=== PATIENT | female | born 1950 | race Caucasian/White ===

== ENCOUNTER → 2017-12-24 | Outpatient (CLI) | payer BC ==
[~2017-12-24] MED LIST: ACET-1138 PO; ASCO1CAP3 PO; ASPEC81 PO; ATEN50TA8 PO; CALC600T9 PO; CHOL4POW6 PO; CINNAMON PO; CLB200 PO; HONEY PO; LSX20 PO; NTRGSL/4 UT; OMEP40CA PO; OXYSR10 PO; PREMARIN CREAM TOP; RXC5 PO
--- NOTE | 2017-12-24 10:37 | Discharge Instructions ---
Discharge Instructions Procedure Procedure Date: Dec 24, 2017. Reason for visit: Right Breast Mass. Discharge Discharge Date: Dec 24, 2017. Discharge Diagnosis: post right breast ultrasound guided core biopsy Medications Restart Stopped Medication(s): May restart Aspirin today Instructions Activity Recommendations: Additional Limitations (see below) Return to School/Work: no limitations Recommended Home Diet: No Limitations Provider Instructions: ACTIVITY RECOMMENDATIONS: * No lifting, pushing, pulling or exercising the affected side for three days. RETURN TO SCHOOL/WORK: * You may return to work/school after the procedure, but do not perform any strenuous activities for 24 to 48 hours. MEDICATIONS: * Tylenol (two 325 mg) every four to six hours if needed for mild pain (if not allergic to Tylenol). DIET: * Resume previous diet. SPECIAL CARE INSTRUCTIONS: * Keep biopsy site dry for 24 hours. May shower after 24 hours, but do not soak (bathe) incision. * May remove Tegaderm (plastic patch) tomorrow AFTER showering. * Leave the steri-strips on for one week. Allow the steri-strips to fall off by themselves. If not off after one week, you may remove them. You may place a Bandaid crosswise over the strips, if desired. * Apply ice 10 minutes on and 10 minutes off as needed. * Wear a bra at bedtime to sleep more comfortably for 2-3 days. * Your referring physician should have the results after approximately 5 to 7 business days. * Call for unusual bleeding, fever, drainage, etc or if you have any questions call [phone] during normal business hours or after hours call Dr Michael, . FOLLOW UP VISIT: Follow-up with Referring Physician as scheduled. Allergies Coded Allergies: Adhesives (Verified Allergy, Intermediate, TEARS SKIN, 02/19/16) Statins (Verified Adverse Reaction, Intermediate, muscle pain, 02/19/16) Vineet Wolfe Recommendations: Call your doctor if: * Temperature above 101 degrees * Pain not relieved by pain medicine ordered * There is increased drainage or redness from any incision * You have any unanswered questions or concerns. Your Doctors Instructions noted above were prepared by provider Maylin Michael. Patient Signature Section: Patient Instructions Signature Page Starr Bowman Patient (or Guardian) Signature/Date: I have read and understand the instructions given to me by my caregivers. Caregiver/RN/Doctor Signature/Date: The above-named patient and/or guardian has received patient instructions on this date. + Original Patient Signature Page (only) stays with chart. Please make copy for patient.
--- NOTE | 2017-12-24 15:12 | MAMMOGRAPHY REPORT ---
UNILATERAL RIGHT DIGITAL DIAGNOSTIC MAMMOGRAM TOMOSYNTHESIS: 12/24/2017 CLINICAL HISTORY: 67-year-old woman presents for biopsy of an increasing mixed cystic and solid mass in the 6:00 right breast, thought to correlate with a mammographic focal asymmetry. Please refer to the report from right breast ultrasound-guided core biopsy performed at the same time for full detail. IMPRESSION: POST PROCEDURE IMAGING FOR MARKER PLACEMENT Please refer to the report from right breast ultrasound-guided core biopsy performed at the same time for full detail. Approximately 10% of breast cancers are not detected with mammography. A negative mammographic report should not delay biopsy if a clinically suggestive mass is present. Maylin Michael M.D. ay/:12/24/2017 10:36:37 Cloud Operations Engineer: Jovi ROBBINS)(Jose), [facility] BI-RADS Code: Post Procedure Imaging For Marker Placement
--- NOTE | 2017-12-24 15:12 | MAMMOGRAPHY REPORT ---
ULTRASOUND GUIDED BIOPSY RIGHT BREAST: 12/24/2017 CLINICAL HISTORY: 67-year-old woman initially called back from screening mammography performed at an outside institution on 05/08/2017. She was found to have a focal asymmetry in the 6:00 axis, with pos sible sonographic correlate seen on ultrasound that appeared predominantly cystic. A six-month follo w-up was recommended but at time of follow-up, the sonographic mass had increased and was deemed inde terminate and tissue sampling was recommended. The patient presents for biopsy of the mixed solid an d cystic mass in the 6:00 right breast. COMPARISON: Comparison is made to exams dated: 12/02/2017 mammogram, 12/02/2017 ultrasound, 05/30/2017 mammogram, 05/30/2017 ultrasound, 05/08/2017 mammogram, and 04/23/2016 mammogram. Right PATIENT CONSENT: The procedure, risks and benefits were discussed with the patient and informed consent was obtained both verbally and in writing. Specific risks to this procedure include: bleedi ng, infection, puncture of adjacent structure, nontarget biopsy, sampling error, pain, metal allergy and medication reaction. PROCEDURE DESCRIPTION: A time out was performed and the right breast was agreed as the site of biopsy . First repeat targeted ultrasound was performed in the 6:00 right breast, 5 cm from the nipple, to evaluate the mass identified at an outside institution. In the right 6:00 axis, 5 cm from the nipple , a mixed isoechoic and anechoic predominantly cystic mass is identified, measuring 6.2 x 3.9 mm. Thi s corresponds with the mass seen on the outside ultrasounds and is indeterminate. This is the target for ultrasound-guided core biopsy. The skin of the right breast was prepped and draped in the usual sterile fashion. The 6.2 mm mixed so lid and cystic mass in the 6:00 right breast was chosen as the target for biopsy. Subcutaneous and in traparenchymal 1% buffered lidocaine, with and without epinephrine, was administered as local anesthe harjinder. A skin incision was made. Through the incision, 4 samples were taken with a 14 gauge Achieve bi opsy device. The mass decreased in size after each core biopsy sample. A ribbon shaped metallic mar ker was placed at the biopsy site. Hemostasis was achieved after manual compression. The patient tole rated the procedure well and there was no immediate complication. The samples were sent to the patho logy department in an appropriately labeled container. Postprocedure right CC and ML tomosynthesis images were obtained. The mammographic mass is no longer identified, and there is a new ribbon-shaped biopsy marker clip in the 6:00 right breast in the are a of previously observed mass. This confirms mammographic or sonographic correlation. No significan t post biopsy hematoma identified. IMPRESSION: ULTRASOUND GUIDED BIOPSY Status post ultrasound-guided core biopsy of an indeterminate mixed solid and cystic mass in the 6:00 right breast, with biopsy marker placed at the site. The biopsy marker clip aligns with the initial mammographic focal asymmetry in question, confirming mammographicsonographic correlation. The patient will receive notification of the pathology results from her referring physician. Maylin Michael M.D. ay/:12/24/2017 11:06:00 Television Equipment Operator: Jovi ROBBINS)(Jose), [facility]
== END | disposition home or self-care (01) ==
LOC: C.MAMM 09:17
PROVIDERS: ATTEND Surgery
DX: R92.8 Other abnormal and inconclusive findings on diagnostic imaging of breast (principal); N63.10 Unspecified lump in the right breast, unspecified quadrant; N60.41 Mammary duct ectasia of right breast

== ENCOUNTER → 2017-12-31 | Day surgery (SDC) | payer BC ==
[~2017-12-31] VITALS: Ht 175.3 cm; Wt 95.0 kg
[~2017-12-31] MED LIST changes: +LACTATED RINGER'S 1000ML IV SCH; +LIDOCAINE HCL 1% 20 ML VIAL ONE
[2017-12-31 11:20] VITALS: BP 122/62; PULSE 69; TEMP 36.8; O2SAT 95; Ht 175.3 cm; Wt 95.0 kg
--- NOTE | 2017-12-31 12:46 | [facility] Operative Report ---
Operative Report Date of Service Dec 31, 2017. Operative Report Procedure: Removal of loop recorder Staff Steel Finisher: Jacob Mckeon MD Indication: Patient previously undergone implantation of patient activated loop recorder. Is reached the end of life. She therefore request removal. Procedure in detail: The patient was informed of the risks benefits alternatives to the intended procedure. She understood such and wished to proceed. She was taken to the EP lab where the upper chest area was prepped and draped in usual sterile fashion. An area over the previously implanted loop recorder was anesthetized using subcutaneous administration of lidocaine solution. A small incision was made at this site and the loop recorder removed. A single 4 0 Vicryl suture was placed at the small incision covered by Steri-Strips and a sterile dressing. The patient tolerated the procedure well. There were no immediate complications. Explanted loop recorder: Commercial Front Load Operator [employer]. Model number LN Q 1 1. Serial number [id number] Impression: ILR removed. No sedation. No complications I attest to the content of the Intraoperative Record and any orders documented therein. Any exceptions are noted below.
--- NOTE | 2017-12-31 12:49 | Discharge Instructions ---
Discharge Instructions Procedure Procedure Date: Dec 31, 2017. Reason for Visit: *Removal* Eos *Mike To Do*. Discharge Discharge Date: Dec 31, 2017. Discharge Diagnosis: Removal of loop recorder Last Recorded Wt (Kilograms): 95 Anesthesia Post Anesthesia Instructions: If you have had General Anesthesia or IV Sedation: * Do not drive today. * Resume driving when surgeon permits. * Do not make important decisions or sign legal documents today. * Call surgeon for: 1. Temperature elevations greater than 101 degrees F. 2. Uncontrollable pain. 3. Excessive bleeding. 4. Persistent nausea and vomiting. 5. Medication intolerance (nausea, vomiting or rash). * For nausea and vomiting use only clear liquids such as: tea, soda, bouillon until nausea subsides, then gradually increase diet as tolerated. * If you have any concerns or questions, call your surgeon's office. If physician is unavailable and it is an emergency, call 911 or go to the nearest emergency room. Instructions Activity Recommendations: shower/bathe limit Recommended Home Diet: resume previous diet Allergies: Coded Allergies: Adhesives (Verified Allergy, Intermediate, TEARS SKIN, 02/19/16) Statins (Verified Adverse Reaction, Intermediate, muscle pain, 02/19/16) Provider Instructions Keep wound dry and steri-strip intact until f/u in 1 week. May remove outer bulky dressing in am Follow Up Vineet Wolfe Recommendations: Call your doctor if: * Temperature above 101 degrees * Pain not relieved by pain medicine ordered * There is increased drainage or redness from any incision * You have any unanswered questions or concerns. Your Doctors Instructions noted above were prepared by provider Sanchez Mckeon. Patient Signature Section: Patient Instructions Signature Page Starr Bowman Patient (or Guardian) Signature/Date: I have read and understand the instructions given to me by my caregivers. Caregiver/RN/Doctor Signature/Date: The above-named patient and/or guardian has received patient instructions on this date. + Original Patient Signature Page (only) stays with chart. Please make copy for patient.
[2017-12-31 12:50] VITALS: BP 141/70; PULSE 65; TEMP 36.6; O2SAT 96
[2017-12-31 13:20] VITALS: BP 139/64; PULSE 71; TEMP 36.4; O2SAT 98
== END | disposition home or self-care (01) ==
LOC: C.ACU 10:53
PROVIDERS: ATTEND Internal Medicine Clinical Cardiac Electrophysiology
DX: Z45.09 Encounter for adjustment and management of other cardiac device (principal); R00.2 Palpitations; I11.0 Hypertensive heart disease with heart failure; I50.9 Heart failure, unspecified; I25.10 Atherosclerotic heart disease of native coronary artery without angina pectoris; K21.9 Gastro-esophageal reflux disease without esophagitis; E78.5 Hyperlipidemia, unspecified; R91.8 Other nonspecific abnormal finding of lung field; I25.2 Old myocardial infarction; Z87.440 Personal history of urinary (tract) infections; Z90.49 Acquired absence of other specified parts of digestive tract; Z90.710 Acquired absence of both cervix and uterus; Z96.659 Presence of unspecified artificial knee joint; Z82.49 Family history of ischemic heart disease and other diseases of the circulatory system; Z83.3 Family history of diabetes mellitus; Z80.7 Family history of other malignant neoplasms of lymphoid, hematopoietic and related tissues; Z79.82 Long term (current) use of aspirin; Z79.899 Other long term (current) drug therapy; Z88.8 Allergy status to other drugs, medicaments and biological substances

== ENCOUNTER 2023-06-10 09:45 | Inpatient (IN) ==
--- NOTE | 2023-05-23 11:33 | PAT Medication Instructions ---
Medication Instructions Date of Service May 23, 2023 Home Medications Medication Instructions Recorded pantoprazole 40 mg tablet,delayed See Rx Instructions .Route 04/17/22 release .COMPLEX #60 tabs aspirin 81 mg tablet,delayed release 81 mg PO QAM atenolol 50 mg tablet 50 mg PO QAM celecoxib 200 mg capsule 200 mg PO DAILY PRN pain conjugated estrogens 0.625 mg/gram vaginal cream (Premarin) 0.625 mg vaginal 2XW K cyanocobalamin (vitamin B-12) 2,500 mcg sublingual tablet (Vitamin B-12) 2,500 mcg sublingual QAM furosemide 20 mg tablet 20 mg PO QAM garlic 1 cap PO HS nitroglycerin 0.4 mg sublingual tablet (Nitrostat) 0.4 mg sublingual Q5M PRN chest pain ascorbic acid (vitamin C) 500 mg capsule 500 mg PO HS calcium carbonate 600 mg calcium (1,500 mg) tablet 600 mg PO HS cholestyramine (with sugar) 4 gram powder for susp in a packet (Questran) 1 ea PO QPM pantoprazole 40 mg tablet,delayed release See Rx Instructions omega-3 fatty acids [Fish Oil] 1 cap PO QAM Continue as directed nitroglycerin 0.4 mg sublingual tablet (Nitrostat) 0.4 mg sublingual Q5M PRN chest pain (if needed) ASK your surgeon for instructions celecoxib 200 mg capsule 200 mg PO DAILY PRN pain ASK your prescriber and surgeon conjugated estrogens 0.625 mg/gram vaginal cream (Premarin) 0.625 mg vaginal 2XWK STOP taking 2 weeks before surgery garlic 1 cap PO HS omega-3 fatty acids [Fish Oil] 1 cap PO QAM STOP taking 48 hours before surgery cholestyramine (with sugar) 4 gram powder for susp in a packet (Questran) 1 ea PO QPM DO NOT take the morning of surgery cyanocobalamin (vitamin B-12) 2,500 mcg sublingual tablet (Vitamin B-12) 2,500 mcg sublingual QAM furosemide 20 mg tablet 20 mg PO QAM Take morning of surgery With a small sip of water, OTHERWISE NOTHING TO EAT OR DRINK AFTER MIDNIGHT: aspirin 81 mg tablet,delayed release 81 mg PO QAM (unless surgeon directed otherwise) atenolol 50 mg tablet 50 mg PO QAM pantoprazole 40 mg tablet,delayed release See Rx Instructions Take evening before surgery ascorbic acid (vitamin C) 500 mg capsule 500 mg PO HS calcium carbonate 600 mg calcium (1,500 mg) tablet 600 mg PO HS pantoprazole 40 mg tablet,delayed release See Rx Instructions Other Notes If you have any questions please call us at [phone] or [phone] or [phone] or [phone]
--- NOTE | 2023-05-27 13:40 | Anesthesiology Consultation ---
Date of Service May 27, 2023 Assessment & Plan (1) Encounter for pre-operative examination: - COVID screening: Per assessment on 05/27: No known COVID-19 positive contacts or current COVID-19 related symptoms. No recent Covid positive test result. - Patient acceptable risk for surgery pending surgeon-ordered cardiology preop evaluation ([facility] cardiology, appt 06/05). Chart Review Chart Review: Patient seen in Pre Admission Testing Teaching & Discussion Pre-Anesthesia Teaching/Discussion Notes: Instructed NPO after midnight before surgery,except medications with 15 cc of water. Medication instructions provided according to the PAT guidelines. History Surgery Operation Date: 06/10/23 10:35 Proposed Procedures p L3-L5 Decompression and Fusion, L3 Screw Removal Spinal Cord Monitoring - Henrik Madison DO Height/Weight Height: 5 ft 10 in Weight: 101.2 kg Allergies Allergy/AdvReac Type Severity Reaction Status Date / Time adhesive Allergy Intermediate Skin Verified 05/27/23 13:44 tearing alirocumab Allergy Intermediate Chest Pain Verified 05/22/23 13:48 [From Praluent Pen] [id number]-[id number] Reductase AdvReac Intermediate muscle pain Verified 05/22/23 13:48 Inhibitor [Tvuetyx-Kcu-Pjg Reductase Inhibitor] Medications Home Medications Medication Instructions Recorded Confirmed Last Taken aspirin 81 mg tablet,delayed 81 mg PO QAM 02/21/21 05/22/23 02/07/22 release atenolol 50 mg tablet 50 mg PO QAM 02/21/21 05/22/23 02/08/22 05:30 celecoxib 200 mg capsule 200 mg PO DAILY PRN pain 02/21/21 05/22/23 01/25/22 conjugated estrogens 0.625 mg/gram 0.625 mg vaginal 2XWK 02/21/21 05/22/23 02/05/22 vaginal cream (Premarin) cyanocobalamin (vitamin B-12) 2,500 mcg sublingual QAM 02/21/21 05/22/23 02/07/22 2,500 mcg sublingual tablet (Vitamin B-12) furosemide 20 mg tablet 20 mg PO QAM 02/21/21 05/22/23 02/07/22 garlic 1 cap PO HS 02/21/21 05/22/23 02/07/22 nitroglycerin 0.4 mg sublingual 0.4 mg sublingual Q5M PRN chest 02/21/21 05/22/23 Unknown tablet (Nitrostat) pain ascorbic acid (vitamin C) 500 mg 500 mg PO HS 02/27/21 05/22/23 02/07/22 capsule calcium carbonate 600 mg calcium 600 mg PO HS 03/17/21 05/22/23 02/07/22 (1,500 mg) tablet cholestyramine (with sugar) 4 gram 1 ea PO QPM 03/17/21 05/22/23 02/07/22 powder for susp in a packet (Questran) pantoprazole 40 mg tablet,delayed See Rx Instructions .Route 04/17/22 05/22/23 Unknown release .COMPLEX #60 tabs omega-3 fatty acids [Fish Oil] 1 cap PO QAM 04/20/22 05/22/23 Unknown Past Medical History Medical History Chronic back pain 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 cardiology visit 12/2022 (f/u based on holter monitor findings per note) Hyperlipidemia Hypertension Left knee DJD Perforated bowel Hx r/t colonoscopy complication > bowel resection Vaginal pessary present Exercise / Class Metabolic Activity II 4-5 Yardwork/Stairs/Walk up hill (one FS (no CP, no SOB)) Past Family History Family History Mother Heart disease Myocardial infarction Father Cancer lymphoma Grandmother (Paternal) Heart disease Sister Diabetes Brother Diabetes Daughter Diabetes Other No family history of adverse response to anesthesia Past Surgical History Surgical History H/O cardiac catheterization Age 40s- no stents History of arthroplasty of knee left knee History of arthroscopy of right knee History of benign breast biopsy History of bilateral cataract extraction History of bilateral tubal ligation History of bowel resection After perforation after colonoscopy History of section x3 History of colonoscopy History of cystoscopy History of dilatation and curettage History of esophagogastroduodenoscopy (EGD) History of loop recorder subsequently removed History of lumbar spinal fusion History of partial hysterectomy History of wisdom tooth extraction Hx of decompressive lumbar laminectomy S/P appendectomy S/P cholecystectomy Past Anesthesia History No Hx of Anesthesia Complications and No Family Hx of Anesthesia Complications History of PONV History of PONV (Post-op nausea (no issue subsequently when pretreatment given)) and Hx of Motion Sickness Social History Smoking Status: Never smoker Do You Dip or Chew Tobacco: No Hx Alcohol Use: Yes Alcohol type: wine alcohol intake frequency: holidays/special occasions only Hx Substance Use: No substance use type: does not use Review of Systems Patient denies chest pain, shortness of breath, dyspnea on exertion, fever, chills, cough, wheezing, palpitations. Physical Exam Vital Signs VITALS BP 147/80 P 64 TEMP 98.2 SP02 96%RA RESP 18 PHYSICAL Full cervical extension range of motion. Full TMJ range of motion. TMD 3 finger breaths Mallampati Score 1 Dentition: upper full denture Lungs: clear throughout to auscultation Cardiac: regular rate and rhythm, no murmurs noted Spine: normal Carotid arteries: negative bruit Extremities: no LE edema Lab Results Anesthesia Preop Results Results Anesthesia Widget: WBC 5.19 K/ul (4.8-10.8) 05/27/23 Hgb 12.6 g/dl (12.0-16.0) 05/27/23 Hct 38.1 % (37.0-47.0) 05/27/23 Plt 269 K/uL (130-400) 05/27/23 Na 140 mmol/L (136-145) 05/27/23 K 4.2 mmol/L (3.5-5.1) 05/27/23 Cl 104 mmol/L (98-107) 05/27/23 CO2 29 mmol/L (21-32) 05/27/23 BUN 10 mg/dl (6-23) 05/27/23 Creat 0.68 mg/dl (0.6-1.2) 05/27/23 Glucose Level 92 mg/dl (70-99(Fasting)) 05/27/23 PT 12.1 Seconds (9.0-12.0) H 05/27/23 PTT 27.6 Seconds (21.0-31.0) 05/27/23 INR 1.1 (0.9-1.1) 05/27/23 Urine Color Yellow 05/27/23 Urine Appearance Clear (Clear) 05/27/23 Urine pH 5.0 (4.5-7.5) 05/27/23 Urine Specific Telephone 1.017 (1.000-1.030) 05/27/23 Urine Protein Negative (Negative) 05/27/23 Urine Glucose (UA) Negative (Negative) 05/27/23 Urine Ketones Negative (Negative) 05/27/23 Urine Blood 3+ (Negative) H 05/27/23 Urine Nitrite Negative (Negative) 05/27/23 Urine Bilirubin Negative (Negative) 05/27/23 Urine Urobilinogen Negative (Negative) 05/27/23 Urine Leukocyte Esterase Negative (Negative) 05/27/23 Urine WBC (Auto) 0 /hpf (0-5) 05/27/23 Urine RBC (Auto) 5-10 /hpf (0-4) H 05/27/23 Urine Hyaline Casts (Auto) 1-5 /lpf (0-5) 05/27/23 Urine Epithelial Cells (Auto) >30 /lpf (0-5) H 05/27/23 Urine Bacteria (Auto) 1+ (Negative) H 05/27/23 Blood Type O Positive 05/27/23 Antibody Screen NEGATIVE 05/27/23 Testing Laboratory Results *Surgeon's office made aware of abnormal UA* Electrocardiogram Date: 12/21/22 Sinus rhythm at 72 bpm. RBBB. Chest X-Ray Date: 05/27/23 FINDINGS: No lines and tubes are seen. The cardiomediastinal silhouette is n ormal. The lungs are clear. No evidence of pleural effusion or pneumothorax. IMPRESSION: No acute chest disease. Echocardiogram Date: 12/25/22 LVEF 65%. LV wall motion is normal.Grade 1 diastolic dysfunction. Nondilated cardiac chambers. Mild AV sclerosis. Mild [place]. No significant change compared to 01/2021 per report. Stress Test Date: 01/16/21 Type: DSE Stress echo negative for inducible ischemia. 96% MPHR. No EKG evidence of dobutamine induced myocardial ischemia. Stress EKG shows occasional PVCs with runs of atrial tachycardia. No significant ST changes are noted. Rest echo: LVEF 66%. No LV segmental wall motion abnormalities. Nondilated cardiac chambers. Other Testing banking center manager Date: 01/22/23 (25 days monitored) Average heart rate 69 bpm. Minimum 50 bpm. Maximum 120 bpm. No significant atrial or ventricular ectopy. No sustained atrial ventricular arrhythmias. No significant bradycardia, heart block or pauses. No atrial fibrillation. Impression: Normal event monitor without symptoms or arrhythmia.
[~2023-06-10 09:45] MED LIST changes: -ACET-1138 PO; +ACETAMINOPHEN 500 MG TAB PO SCH; -ASCO1CAP3 PO; -ASPEC81 PO; -ATEN50TA8 PO; -CALC600T9 PO; -CHOL4POW6 PO; -CINNAMON PO; -CLB200 PO; +CeleBREX 200 MG CAP PO SCH; +GABAPENTIN 300 MG CAP PO SCH; -HONEY PO; -LACTATED RINGER'S 1000ML IV SCH; -LIDOCAINE HCL 1% 20 ML VIAL ONE; +LR 15ML/HR IV SCH; +LR 60ML/HR IV SCH; -LSX20 PO; -NTRGSL/4 UT; -OMEP40CA PO; -OXYSR10 PO; -PREMARIN CREAM TOP; -RXC5 PO; +ceFAZolin 2000MG 2,000 MG/15 ML SYR IV SCH
[2023-06-10] MEDS ORDERED: ONDANSETRON INJ 2 MG/ML 2 ML VIAL ONE (10:57)
[2023-06-10] MEDS ORDERED: PROPOFOL IV EMULSION 10 MG/ML 20 ML VIAL IV ONE (10:57)
[2023-06-10] MEDS ORDERED: DEXAMETHASONE SOD INJ 4 MG/ML VIAL ONE (10:57)
[2023-06-10] MEDS ORDERED: MIDAZOLAM HCL 1 MG/ML 2ML VIAL ONE (10:57)
[2023-06-10] MEDS ORDERED: fentaNYL citrate PF 100 MCG/2 ML VIAL ONE (10:57)
[2023-06-10] MEDS ORDERED: LIDOCAINE 2% 2 ML VIAL/AMP(20MG/ML) INFIL ONE (10:57)
[2023-06-10] MEDS ORDERED: ROCURONIUM BROMIDE 10 MG/ML 5 ML VIAL IV ONE (10:57)
--- NOTE | 2023-06-10 12:00 | History & Physical Bridge Note ---
Date of Service June 10, 2023 History & Physical Bridge Note I have examined the patient, reviewed the History & Physical and in the interval since the performance of the History & Physical I have noted the following changes of clinical significance: no changes noted
--- NOTE | 2023-06-10 12:01 | History & Physical Report ---
Date of Service June 10, 2023 Assessment & Plan (1) Neurogenic claudication due to lumbar spinal stenosis: Plan: L3-L5 decompression and fusion, L3 screw removal History of Present Illness Chief Complaint: Back and bilateral leg pain Primary Care Provider: Rigo Chavez This is a 72-year-old female who presents with chronic persistent back and bilateral leg pain after failing course of nonoperative care she is here for surgical invention. Allergies Allergy/AdvReac Type Severity Reaction Status Date / Time adhesive Allergy Intermediate Skin Verified 06/10/23 10:13 tearing alirocumab Allergy Intermediate Chest Pain Verified 06/10/23 10:13 [From Praluent Pen] Zhnimkg-XEV-VxM Reductase AdvReac Intermediate muscle pain Verified 06/10/23 10:13 Inhibitor [Hehhczi-Ihl-Akp Reductase Inhibitor] Home Medications Medication Instructions Recorded Confirmed Type aspirin 81 mg tablet,delayed 81 mg PO QAM 02/21/21 06/10/23 History release atenolol 50 mg tablet 50 mg PO QAM 02/21/21 06/10/23 History celecoxib 200 mg capsule 200 mg PO DAILY PRN pain 02/21/21 06/10/23 History conjugated estrogens 0.625 mg/gram 0.625 mg vaginal 2XWK 02/21/21 06/10/23 History vaginal cream (Premarin) cyanocobalamin (vitamin B-12) 2,500 mcg sublingual QAM 02/21/21 06/10/23 History 2,500 mcg sublingual tablet (Vitamin B-12) furosemide 20 mg tablet 20 mg PO QAM 02/21/21 06/10/23 History garlic 1 cap PO HS 02/21/21 06/10/23 History nitroglycerin 0.4 mg sublingual 0.4 mg sublingual Q5M PRN chest 02/21/21 06/10/23 History tablet (Nitrostat) pain ascorbic acid (vitamin C) 500 mg 500 mg PO HS 02/27/21 06/10/23 History capsule calcium carbonate 600 mg calcium 600 mg PO DAILY 03/17/21 06/10/23 History (1,500 mg) tablet cholestyramine (with sugar) 4 gram 1 ea PO QPM 03/17/21 06/10/23 History powder for susp in a packet (Questran) pantoprazole 40 mg tablet,delayed See Rx Instructions .Route 04/17/22 06/10/23 Rx release .COMPLEX #60 tabs omega-3 fatty acids [Fish Oil] 1 cap PO QAM 04/20/22 06/10/23 History Past Med/Surg History Medical History Chronic back pain Cystocele and rectocele with complete uterovaginal prolapse wears pessary GERD (gastroesophageal reflux disease) History of COVID-19 09/2020, no residual symptoms History of myocardial infarction Age 40s, medically managed [facility] [place] (f/u based on holter monitor findings per note) Hyperlipidemia Hypertension Left knee DJD Perforated bowel Hx r/t colonoscopy complication > bowel resection Vaginal pessary present Surgical History H/O cardiac catheterization Age 40s- no stents History of arthroplasty of knee left knee History of arthroscopy of right knee History of benign breast biopsy History of bilateral cataract extraction History of bilateral tubal ligation History of bowel resection After perforation after colonoscopy History of section x3 History of colonoscopy History of cystoscopy History of dilatation and curettage History of esophagogastroduodenoscopy (EGD) History of loop recorder subsequently removed History of lumbar spinal fusion History of partial hysterectomy History of wisdom tooth extraction Hx of decompressive lumbar laminectomy S/P appendectomy S/P cholecystectomy Family History Mother Heart disease Myocardial infarction Father Cancer lymphoma Grandmother (Paternal) Heart disease Sister Diabetes Brother Diabetes Daughter Diabetes Other No family history of adverse response to anesthesia Social History Smoking Status: Never smoker Second Hand Exposure: No; Do You Dip or Chew Tobacco: No; Hx Alcohol Use: Yes Alcohol type: wine Alcohol Intake Frequency Comment: occasional Hx Substance Use: No Preferred Language: Bulgarian Communication Ability: Effective Appliance Repairer Required: No Beliefs That Will Affect Care: None marital status: Current Living Situation: Alone Feels Safe at Home: Yes Safety Concerns: Feels Safe At This Time Assistive Devices: Denture - Upper and Glasses Physical Exam Physical Exam: Patient is alert and oriented Heart regular rhythm Lungs clear Results & Data Results & Data Vital Signs (Past 12 Hours) Vital Signs Temp Pulse Resp BP Pulse Ox O2 Del Method 06/10/23 10:16 37.0 C 70 18 158/94 H 97 Room Air
[2023-06-10] MEDS ORDERED: BUPIVACAINE/EPINEPHRINE 0.25% 1:200,000 30 ML VIAL ONE (12:17)
[2023-06-10] MEDS ORDERED: ceFAZolin 330 MG/ML 1 GM VIAL ONE (12:18)
[2023-06-10] MEDS ORDERED: FLOSEAL HEMOSTATIC MATRIX 10ML TOP ONE (13:37)
[2023-06-10] MEDS ORDERED: NALOXONE HCL 0.4 MG/1 ML VIAL/CARP IV PRN ×2 (14:08→16:17)
[2023-06-10] MEDS ORDERED: ATROPINE SULFATE 0.1 MG/ML 10ML SYR IV PRN (14:08)
[2023-06-10] MEDS ORDERED: fentaNYL citrate PF 100 MCG/2 ML VIAL IV PRN (14:08)
[2023-06-10] MEDS ORDERED: LABETALOL HCL IV 5 MG/ML 20ML IV PRN (14:08)
[2023-06-10] MEDS ORDERED: ONDANSETRON INJ 2 MG/ML 2 ML VIAL IV PRN ×2 (14:08→16:17)
[2023-06-10] MEDS ORDERED: ePHEDrine sulfate 50 MG/ML AMP IV PRN (14:08)
[2023-06-10] MEDS ORDERED: FLUMAZENIL 0.1 MG/1 ML 10 ML VIAL IV PRN (14:08)
[2023-06-10] MEDS ORDERED: HYDROmorphone INJ 1 MG/ML SYRINGE IV PRN ×2 (14:08→16:17)
[2023-06-10] MEDS ORDERED: PROMETHAZINE HCL 12.5 MG in SODIUM CHLORIDE 0.9% 50 ML IV PRN ×2 (14:08→16:17)
[2023-06-10] MEDS ORDERED: GLYCOPYRROLATE 0.2 MG/ML VIAL ONE (14:09)
--- NOTE | 2023-06-10 15:08 | Operative Report ---
Post Operative Report Pre & Post Diagnosis Operation Date: 06/10/23 11:35 Pre-Op Diagnosis: Neurogenic claudication due to lumbar spinal stenosis Post-Op Diagnosis: Neurogenic claudication due to lumbar spinal stenosis I identified the patient and participated in the time-out.: Yes Procedure Operation Date: 06/10/23 11:35 Actual Procedures #1 removal of posterior instrumentation L4 pedicle screws and connectors. #2 exploration of fusion L3-4. #3 lumbar decompression bilaterally facetectomies and foraminotomies L4-5. #4 posterior spinal fusion L4-5. #5 placement L5 pedicle screws with connectors at L4. #6 interbody fusion L4-L5. #7 placement spiral 14 x 26 mm x 2 L4-L5. #8 placement locally harvested morselized autograft posterior gutters. #9 placement of I factor combined with V toss interbody space and posterior lateral gutters. Surgeon Henrik Madison, Retail Assistant Chiquita Anguiano Estimated Blood Loss 400 Findings See Below The patient is 5 foot 9 weight over 99 kg with a BMI in excess of 32. Patient's body habitus did contribute to significant technical difficulty requiring articular instruments and longer retractors in order to perform the procedure. This at least 50% increased operative time. Specimens None Indications This is a 72-year-old female who presents above-mentioned diagnosis after failing course of nonoperative care is here for the above-mentioned procedure. Description of Procedure Patient was met with identified informed consent obtained. Patient was then taken to the operative suite underwent ablation placed in prone position injected with topicals and frame. Opening promises well-padded eyes inspected to ensure no external pressure placed upon him. This point the lumbar spine was prepped and draped in a sterile fashion. Sharp dissection with the assistance of a guarded form down to exposing instrumentation at L3-L4 lamina and transverse process of L4-L5 L5-S1. I then removed the connector and pedicle screws from L4 excluded to explore the fusion mass at L3-L4 noted to be mature intact. And began a decompression of L for L5. It noted that the L5-S1 level was autofused and did not require decompression. A complete facetectomy at L4-5 with and foraminotomies was performed bilaterally addressing severe spinal stenosis as well as a facet cyst on the right. After complete decompression pedicle screws were placed at L5 bilateral with assistance of fluoroscopy and by way of transforaminal approach on the right at discectomy was performed endplates created to subcortical mean bone and a 14 x 26 mm Spira cage filled with I factor tapped in position. And then proceeded to the left transforaminal region again discectomy performed and endplates. Subcortical bleeding bone again a 14 x 26 mm prior cage with I factor tapped in position. I then placed jennifer connectors on the proximal por tion of the rods and connected the pedicle screws at L5 to the L3-L4 danya. All the hardware was locked into position transverse processes of L4-5 burred to subcortical bleeding bone. I factor combined with locally harvested morselized autograft was then placed in posterior gutters. 15 round SULY inserted. The incision was then closed with 1 Vicryl fascia 2-0 Vicryl subcutaneously and 4 Monocryl for final skin closure. Steri-Strips sterile dressing placed. Patient waken taken to PACU in stable condition. Please note spinal cord monitoring was utilized at the procedure no changes noted. Lastly Chiquita Anguiano was present at the entire surgery involved the patient positioning complex portion of the surgeon fashion closure. I attest to the content of the Intraoperative Record and any orders documented therein. Any exceptions are noted below.
--- NOTE | 2023-06-10 15:56 | Anesthesiology Progress Note ---
Date of Service June 10, 2023 Anesthesia Post Procedure Vital Signs Vital Signs: Temp Pulse Resp BP Pulse Ox O2 Del Method O2 Flow Rate 06/10/23 15:45 63 14 134/74 94 Room Air 06/10/23 15:35 67 12 145/72 H 99 Room Air 06/10/23 15:27 36 C L 76 18 172/87 H 99 Oxymask 6 06/10/23 10:16 37.0 C 70 18 158/94 H 97 Room Air Transfer of Care Handoff Completed per policy Notes Mental Status: alert / awake / arousable Patient Amnestic to Procedure: Yes Nausea / Vomiting: adequately controlled Pain: adequately controlled Airway Patency, RR, SpO2: stable & adequate BP & HR: stable & adequate Hydration State: stable & adequate Anesthetic Complications: no major complications apparent
--- NOTE | 2023-06-10 16:12 | Fluoroscopy Report ---
INTRAOPERATIVE RADIOGRAPHS CLINICAL HISTORY: Lumbar spinal fusion. Fluoro time: 15 seconds Ka,r: 12.20 mGy FINDINGS: 4 spot fluoroscopic views of the lumbar spine are presented. There is evidence of multileve l laminectomy and thoracolumbar spinal fusion. The exact levels are not clearly delineated on the pro vided images. There is a multilevel discectomy. The orthopedic hardware appears intact. Grade 1 anter olisthesis is noted at the discectomy level. IMPRESSION: Intraoperative images from thoracolumbar spinal fusion surgery as above. Electronically signed by: Tae Arreola M.D. 06/10/2023 4:10 PM
[2023-06-10] MEDS ORDERED: ALUMINUM/MAGNESIUM SUSP 30 ML UDC PO PRN (16:17)
[2023-06-10] MEDS ORDERED: oxyCODONE HCL IR 5 MG TAB (IMMEDIATE RELEASE) PO PRN (16:17)
[2023-06-10] MEDS ORDERED: bisacodyL 10 MG SUPP PR PRN (16:17)
[2023-06-10] MEDS ORDERED: METOCLOPRAMIDE HCL INJ 5 MG/ML 2 ML VIAL IV PRN (16:17)
[2023-06-10] MEDS ORDERED: NITROGLYCERIN SL 0.4 MG/TAB TAB SL PRN (16:17)
[2023-06-10] MEDS ORDERED: diphenhydrAMINE Capsule 25 MG CAP PO PRN (16:17)
[2023-06-10] MEDS ORDERED: LORazepam 0.5 MG TAB PO PRN (16:17)
[2023-06-10] MEDS ORDERED: SOD PHOSPHATE/SOD BIPHOSPHATE ENEMA 132 ML BTL PR PRN (16:17)
[2023-06-10] MEDS ORDERED: ACETAMINOPHEN 1,000 MG/100 ML VIAL IV PRN (16:17)
[2023-06-10] MEDS ORDERED: ONDANSETRON 4 MG OD TAB PO PRN (16:17)
[2023-06-10] MEDS ORDERED: traMADol HCL 50 MG TABLET PO PRN (16:17)
[2023-06-10] MEDS ORDERED: DO NOT ADMINISTER FLU VACCINE PRN (16:17)
[2023-06-10] MEDS ORDERED: HYDROmorphone INJ 0.5 MG/0.5 ML SYR IV PRN (16:17)
[2023-06-10] MEDS ORDERED: hydrOXYzine HCl 25 MG TAB PO PRN (16:17)
[2023-06-10] MEDS ORDERED: LORazepam 2 MG/1 ML VIAL IV PRN (16:17)
[2023-06-10] MEDS ORDERED: MAGNESIUM HYDROXIDE SUSP 30 ML UDC PO PRN (16:17)
[2023-06-10] MEDS ORDERED: FAMOTIDINE 20 MG TAB PO PRN (16:17)
[2023-06-10] MEDS ORDERED: DO NOT ADMINISTER PNEUMOCOCCAL VACCINE PRN (16:17)
[2023-06-10] MEDS: LACTATED RINGER'S 1,000 ML IV SCH (17:12)
--- NOTE | 2023-06-10 18:03 | Hospitalist Consultation ---
Date of Consultation June 10, 2023 Assessment & Plan (1) Neurogenic claudication due to lumbar spinal stenosis: POD#0 L3-L5 decompression and fusion, L3 screw removal by Dr. Madsion Activity and wound care orders as per ortho Pain control with bowel regimen PT/OT Monitor H/H for acute blood loss anemia and transfuse blood products PRN EBL 400 cc (2) Coronary artery disease: (3) History of myocardial infarction: Remote history of OR at age 51, managed medically Appears stable, no reports of chest pain Continue ASA and beta-domingo, patient with history of statin intolerance (4) GERD (gastroesophageal reflux disease): Continue PPI DVT PROPHYLAXIS TEDs/SCDs as per spine Ortho Patient seen in collaboration with Dr. Darling. Thank you for this consultation. We will follow the patient with you during their hospital stay. You can reach a [facility] via the [facility] role in [place] [facility]. Supervising Physician Co-Signing Physician Notes L3-5 decompression surgery , l3 screw removal by Dr Madison Continue PT/OT. Continue asa and beta blockers has statin intolerance continue teds/Scds History of Present Illness Reason for Consultation: Postop medical management Requesting Physician: Dr. Madison Attending Physician: Henrik Madison, DO History of Present Illness 72-year-old female H remote history of OR at age 51 managed medically, hyperlipidemia with statin intolerance, HTN, GERD, and other problems listed below who is s/p L3-L5 decompression and fusion, L3 screw removal today by Dr. Madison. History obtained from the patient and review of outpatient PCP and cardiology records. Postoperatively, the patient is doing well. She reports her pain is well controlled. She denies numbness, tingling, weakness to lower extremities. No chest pain or shortness of breath. Denies lightheadedness and dizziness. No abdominal pain or nausea. Ritter catheter is in place draining clear yellow urine. Allergies Allergy/AdvReac Type Severity Reaction Status Date / Time adhesive Allergy Intermediate Skin Verified 06/10/23 10:13 tearing alirocumab Allergy Intermediate Chest Pain Verified 06/10/23 10:13 [From Praluent Pen] Psdvrel-PJH-LaY Reductase AdvReac Intermediate muscle pain Verified 06/10/23 10:13 Inhibitor [Umswusu-Ggz-Uaa Reductase Inhibitor] Home Medications Medication Instructions Recorded Confirmed Type aspirin 81 mg tablet,delayed 81 mg PO QAM 02/21/21 06/10/23 History release atenolol 50 mg tablet 50 mg PO QAM 02/21/21 06/10/23 History celecoxib 200 mg capsule 200 mg PO DAILY PRN pain 02/21/21 06/10/23 History conjugated estrogens 0.625 mg/gram 0.625 mg vaginal 2XWK 02/21/21 06/10/23 History vaginal cream (Premarin) cyanocobalamin (vitamin B-12) 2,500 mcg sublingual QAM 02/21/21 06/10/23 History 2,500 mcg sublingual tablet (Vitamin B-12) furosemide 20 mg tablet 20 mg PO QAM 02/21/21 06/10/23 History garlic 1 cap PO HS 02/21/21 06/10/23 History nitroglycerin 0.4 mg sublingual 0.4 mg sublingual Q5M PRN chest 02/21/21 06/10/23 History tablet (Nitrostat) pain ascorbic acid (vitamin C) 500 mg 500 mg PO HS 02/27/21 06/10/23 History capsule calcium carbonate 600 mg calcium 600 mg PO DAILY 03/17/21 06/10/23 History (1,500 mg) tablet cholestyramine (with sugar) 4 gram 1 ea PO QPM 03/17/21 06/10/23 History powder for susp in a packet (Questran) pantoprazole 40 mg tablet,delayed See Rx Instructions .Route 04/17/22 06/10/23 Rx release .COMPLEX #60 tabs omega-3 fatty acids [Fish Oil] 1 cap PO QAM 04/20/22 06/10/23 History Patient History Medical History Chronic back pain Cystocele and rectocele with complete uterovaginal prolapse wears pessary GERD (gastroesophageal reflux disease) History of COVID-19 09/2020, no residual symptoms History of myocardial infarction Age 40s, medically managed [facility] [place] visit 12/2022 (f/u based on holter monitor findings per note) Hyperlipidemia Hypertension Left knee DJD Perforated bowel Hx r/t colonoscopy complication > bowel resection Solitary lung nodule Vaginal pessary present Surgical History H/O cardiac catheterization Age 40s- no stents History of arthroplasty of knee left knee History of arthroscopy of right knee History of benign breast biopsy History of bilateral cataract extraction History of bilateral tubal ligation History of bowel resection After perforation after colonoscopy History of section x3 History of colonoscopy History of cystoscopy History of dilatation and curettage History of esophagogastroduodenoscopy (EGD) History of loop recorder subsequently removed History of lumbar spinal fusion History of partial hysterectomy History of wisdom tooth extraction Hx of decompressive lumbar laminectomy S/P appendectomy S/P cholecystectomy Family History Mother Heart disease Myocardial infarction Father Cancer lymphoma Grandmother (Paternal) Heart disease Sister Diabetes Brother Diabetes Daughter Diabetes Other No family history of adverse response to anesthesia Social History Smoking Status: Never smoker Second Hand Exposure: No; Do You Dip or Chew Tobacco: No; Hx Alcohol Use: No Hx Substance Use: No Preferred Language: Lithuanian Communication Ability: Effective Director Of Business Operations Required: No Beliefs That Will Affect Care: None marital status: Current Living Situation: Alone Other Information That Helps Us Care for You: No Feels Safe at Home: Yes Safety Concerns: Feels Safe At This Time Assistive Devices: Denture - Upper and Glasses Review of Systems Review of Systems: ROS per HPI, all other systems reviewed and negative Physical Exam Constitutional: WD/WN, vitals as above no acute distress Eyes: PERRL, conjunctivae normal, anicteric sclerae ENMT: external ear and nose normal, oropharynx normal Respiratory: normal respiratory effort, lungs clear to auscultation Cardiovascular: Rate/Rhythm: regular rate and regular rhythm Vessels: normal peripheral pulses Extremities: no edema Gastrointestinal (Abdomen): normal bowel sounds, soft, nontender, no hepatosplenomegaly Musculoskeletal: no cyanosis or clubbing, extremities motor strength 5/5 S/p back surgery, pedal pushes and pulls strong bilaterally, drain in place draining bloody drainage Skin: no rashes, warm and dry Neurologic: PERRL, EOMI, accommodation nl, no face palsy, no dysarthria Psychiatric: A+Ox3, euthymic affect Results & Data Results & Data Vital Signs (Past 12 Hours) Vital Signs Temp Pulse Pulse Resp BP Pulse Ox O2 Del Method 06/10/23 17:15 36.4 C L 57 L 16 122/75 95 Room Air 06/10/23 16:39 57 L 18 133/75 100 Room Air 06/10/23 16:19 36.3 C L 57 L 18 145/79 H 92 Room Air 06/10/23 16:05 62 12 142/62 H 95 Room Air 06/10/23 15:55 36.3 C L 63 14 109/86 93 Room Air 06/10/23 15:45 63 14 134/74 94 Room Air 06/10/23 15:35 67 12 145/72 H 99 Room Air 06/10/23 15:27 36 C L 76 18 172/87 H 99 Oxymask 06/10/23 10:16 37.0 C 70 18 158/94 H 97 Room Air O2 Flow Rate 06/10/23 17:15 06/10/23 16:39 06/10/23 16:19 06/10/23 16:05 06/10/23 15:55 06/10/23 15:45 06/10/23 15:35 06/10/23 15:27 6 06/10/23 10:16
[2023-06-10] MEDS: PANTOprazole 40 MG TAB PO SCH (20:53)
[2023-06-10] MEDS: CHOLESTYRAMINE LIGHT 4 GM PKT PO SCH (20:53)
[2023-06-10] MEDS: DOCUSATE SODIUM/SENNA 50/8.6MG TAB PO SCH (20:54)
[2023-06-10] MEDS: ASCORBIC ACID 500 MG TAB PO SCH (20:54)
[2023-06-10] MEDS: ceFAZolin 2000MG 2,000 MG/15 ML SYR IV SCH (20:55)
[2023-06-11] MEDS: LACTATED RINGER'S 1,000 ML IV SCH (00:27)
[2023-06-11] MEDS: POLYETHYLENE (MIRALAX) 17 GM PACK PO SCH ×4 (05:05→23:37)
[2023-06-11] MEDS: ceFAZolin 2000MG 2,000 MG/15 ML SYR IV SCH (05:05)
[2023-06-11 08:16] LABS: Basophils # (auto) 0.04 K/uL (0.00-0.20); Basophils % (auto) 0.5 %; Eosinophils # (auto) 0.03 K/uL (0.00-0.50); Eosinophils % (auto) 0.4 %; Hematocrit (blood only) 31.3 % (37.0-47.0); Hemoglobin 10.4 g/dl (12.0-16.0); Immature Granulocytes # (auto) 0.04 K/uL (0.01-0.20); Immature Granulocytes % (auto) 0.5 %; Lymphocytes # (auto) 0.88 K/uL (1.20-3.40); Lymphocytes % (auto) 10.9 %; Mean Corpuscular Hgb Conc 33.2 g/dL (32.0-36.0); Mean Corpuscular Volume 93.2 fL (80.0-100.0); Mean Platelet Volume 10.8 fL (9.4-12.4); Monocytes % (auto) 11.1 %; Neutrophils # (auto) 6.22 K/uL (1.40-6.50); Neutrophils % (auto) 76.6 %; Platelet Count 243 K/uL (130-400); RDW Coefficient of Variation 13.1 % (11.5-14.5); RDW Standard Deviation 44.4 fL (36.4-46.3); Red Blood Count 3.36 M/uL (4.20-5.40); White Blood Count 8.11 K/ul (4.8-10.8)
[2023-06-11] MEDS: CALCIUM CARBONATE 1250MG TAB PO SCH (08:26)
[2023-06-11] MEDS: ASPIRIN 81 MG ECTAB PO SCH (08:26)
[2023-06-11] MEDS: FUROSEMIDE 20 MG TAB PO SCH ×2 (08:26→08:28)
[2023-06-11] MEDS: PANTOprazole 40 MG TAB PO SCH ×2 (08:26→20:16)
[2023-06-11] MEDS: dexAMETHasone 6 MG in SYRINGE 0 ML IV SCH (08:26)
[2023-06-11] MEDS: ATENOLOL 50 MG TABLET PO SCH (08:27)
[2023-06-11 08:40] LABS: BUN Creatinine Ratio 12.5 (10-20); Est GFR (African American) 86.6 ml/min; Est GFR (Non-African American) 74.7 ml/min
--- NOTE | 2023-06-11 10:22 | Orthopedic Progress Note ---
Date of Service June 11, 2023 Assessment & Plan (1) Neurogenic claudication due to lumbar spinal stenosis: Plan: Starr is postoperative day 1 status post TLIF L3-4. She is doing great. We will continue with ambulation and physical therapy. Discontinue Ritter today. Maintain SULY drain and dressing. Continue with pain control. Continue with aggressive bowel regimen. Anticipate discharge home on . Admission and Anticipated Discharge Date Admission Date: June 10, 2023 Subjective Starr is postoperative day 1 status post L3-4 decompression and fusion. She had an uneventful evening. SULY drain output last shift was 5 cc. Radicular leg pain has resolved. She has been up with physical therapy as well as [place] in the llways with a walker. Ritter intact. Review of Systems Review of Systems: All systems reviewed & are unremarkable except as noted in HPI & below Physical Exam Physical Exam: She is sitting in chair in no acute distress. Patient is also examed by Dr. Madison. Lumbar dressing is clean dry and intact functioning SULY drain Calves are soft and nontender bilaterally Strength is intact bilateral lower extremities Results & Data Vital Signs (Past 12 Hours) Vital Signs Temp Pulse Resp BP Pulse Ox O2 Del Method 06/11/23 07:16 36.5 C 70 16 94/62 L 98 Room Air 06/11/23 05:15 103/68 06/11/23 05:12 104/64 06/11/23 05:06 36.5 C 80 16 97/59 L 94 Room Air 06/11/23 02:35 36.5 C 76 16 93/56 L 96 Room Air 06/10/23 23:35 36.3 C L 79 16 98/62 L 96 Room Air
--- NOTE | 2023-06-11 14:22 | Hospitalist Progress Note ---
Date of Service June 11, 2023 Assessment & Plan (1) Neurogenic claudication due to lumbar spinal stenosis: Plan: POD#1 L3-L5 decompression and fusion, L3 screw removal by Dr. Madison Activity and wound care orders as per ortho Pain control with bowel regimen PT/OT Monitor H/H for acute blood loss anemia and transfuse blood products PRN EBL 400 cc Postop hemoglobin of 10.4. (2) Coronary artery disease: (3) History of myocardial infarction: Plan: Remote history of SC at age 51, managed medically Appears stable, no reports of chest pain Continue ASA and beta-domingo, patient with history of statin intolerance (4) GERD (gastroesophageal reflux disease): Plan: Continue PPI DVT PROPHYLAXIS TEDs/SCDs as per spine Ortho Please note the above document was generated using voice recognition software. It may contain grammatical, syntax or spelling errors. Any formal questions or concerns about the content, text or information contained within the body of this dictation should be directly addressed to the provider for clarification Admission and Anticipated Discharge Date Admission Date: June 10, 2023 Subjective Patient seen and examined at bedside. Patient is sitting up on the side of the bed on the chair. She is comfortable. Denies fever, chills, chest pain, shortness of breath or abdominal pain. Review of Systems Review of Systems: All systems reviewed & are unremarkable except as noted in Subjective Physical Exam Physical Exam: Constitutional: WD/WN, vitals as above, NAD, sitting up in bed, pleasant, conversing easily Respiratory: normal respiratory effort, lungs clear to auscultation, no wheeze, rales, rhonchi. Normal insp/exp effort, no accessory muscle use Cardiovascular: RRR, no murmur, no edema Vessels: no JVD or carotid bruit Chest: normal inspection of chest Abdomen: normal bowel sounds, soft, nontender, no hepatosplenomegaly Musculoskeletal: no cyanosis or clubbing, extremities motor strength 5/5. SULY drain in place with serosanguineous output. Skin: no rashes, warm and dry normal turgor Neurologic: PERRL, EOMI, accommodation nl, no face palsy, no dysarthria CN's II- XI intact bilaterally and moves all extremities Psychiatric: A+Ox3, euthymic affect Results & Data Results & Data Vital Signs (Past 12 Hours) Vital Signs Temp Pulse Resp BP Pulse Ox O2 Del Method 06/11/23 07:16 36.5 C 70 16 94/62 L 98 Room Air 06/11/23 05:15 103/68 06/11/23 05:12 104/64 06/11/23 05:06 36.5 C 80 16 97/59 L 94 Room Air 06/11/23 02:35 36.5 C 76 16 93/56 L 96 Room Air Laboratory Results Laboratory Results WBC 8.11 K/ul (4.8-10.8) 06/11/23 07:53 RBC 3.36 M/uL (4.20-5.40) L 06/11/23 07:53 Hgb 10.4 g/dl (12.0-16.0) L 06/11/23 07:53 Hct 31.3 % (37.0-47.0) L 06/11/23 07:53 MCV 93.2 fL (80.0-100.0) 06/11/23 07:53 MCH 31.0 pg (25.0-34.0) 06/11/23 07:53 MCHC 33.2 g/dL (32.0-36.0) 06/11/23 07:53 RDW Std Deviation 44.4 fL (36.4-46.3) 06/11/23 07:53 RDW Coeff of Demond 13.1 % (11.5-14.5) 06/11/23 07:53 Plt Count 243 K/uL (130-400) 06/11/23 07:53 MPV 10.8 fL (9.4-12.4) 06/11/23 07:53 Immature Gran % (Auto) 0.5 % 06/11/23 07:53 Neut % (Auto) 76.6 % 06/11/23 07:53 Lymph % (Auto) 10.9 % 06/11/23 07:53 [place] % (Auto) 11.1 % 06/11/23 07:53 Eos % (Auto) 0.4 % 06/11/23 07:53 Baso % (Auto) 0.5 % 06/11/23 07:53 Neut # (Auto) 6.22 K/uL (1.40-6.50) 06/11/23 07:53 Lymph # (Auto) 0.88 K/uL (1.20-3.40) L 06/11/23 07:53 [place] # (Auto) 0.90 K/uL (0.11-0.59) H 06/11/23 07:53 Eos # (Auto) 0.03 K/uL (0.00-0.50) 06/11/23 07:53 Baso # (Auto) 0.04 K/uL (0.00-0.20) 06/11/23 07:53 Immature Gran # (Auto) 0.04 K/uL (0.01-0.20) 06/11/23 07:53 Sodium 139 mmol/L (136-145) 06/11/23 07:53 Potassium 4.0 mmol/L (3.5-5.1) 06/11/23 07:53 Chloride 104 mmol/L (98-107) 06/11/23 07:53 Carbon Dioxide 26 mmol/L (21-32) 06/11/23 07:53 Anion Gap 9 (3-11) 06/11/23 07:53 BUN 10 mg/dl (6-23) 06/11/23 07:53 Creatinine 0.80 mg/dl (0.6-1.2) 06/11/23 07:53 Est Cr Clr Drug Dosing 83.0 ml/min 06/11/23 07:53 Est GFR ( Amer) 86.6 ml/min 06/11/23 07:53 Est GFR (Non-Af Amer) 74.7 ml/min 06/11/23 07:53 BUN/Creatinine Ratio 12.5 (10-20) 06/11/23 07:53 Glucose 117 mg/dl (70-99(Fasting)) H 06/11/23 07:53 Calcium 9.0 mg/dl (8.6-10.3) 06/11/23 07:53 Blood Type O Positive 06/10/23 10:01 Antibody Screen NEGATIVE 06/10/23 10:01 Crossmatch See Detail 06/10/23 10:01 Impressions Lumbar Spine X-Ray 06/10/23 11:35 INTRAOPERATIVE RADIOGRAPHS CLINICAL HISTORY: Lumbar spinal fusion. Fluoro time: 15 seconds Ka,r: 12.20 mGy FINDINGS: 4 spot fluoroscopic views of the lumbar spine are presented. There is evidence of multilevel laminectomy and thoracolumbar spinal fusion. The exact levels are not clearly delineated on the provided images. There is a multilevel discectomy. The orthopedic hardware appears intact. Grade 1 anterolisthesis is noted at the discectomy level. IMPRESSION: Intraoperative images from thoracolumbar spinal fusion surgery as above. Electronically signed by: Tae Arreola M.D. 06/10/2023 4:10 PM
[2023-06-11] MEDS: ASCORBIC ACID 500 MG TAB PO SCH (20:16)
[2023-06-11] MEDS: DOCUSATE SODIUM/SENNA 50/8.6MG TAB PO SCH (20:16)
[2023-06-11] MEDS: CHOLESTYRAMINE LIGHT 4 GM PKT PO SCH (23:23)
[2023-06-12] MEDS: POLYETHYLENE (MIRALAX) 17 GM PACK PO SCH (05:17)
[2023-06-12] MEDS: CALCIUM CARBONATE 1250MG TAB PO SCH (07:47)
[2023-06-12] MEDS: PANTOprazole 40 MG TAB PO SCH ×2 (07:47→19:38)
[2023-06-12] MEDS: FUROSEMIDE 20 MG TAB PO SCH (07:47)
[2023-06-12] MEDS: ASPIRIN 81 MG ECTAB PO SCH (07:48)
[2023-06-12] MEDS: ATENOLOL 50 MG TABLET PO SCH (07:48)
[2023-06-12] MEDS: dexAMETHasone 6 MG in SYRINGE 0 ML IV SCH (07:49)
[2023-06-12] MEDS: ACETAMINOPHEN 500 MG TAB PO PRN ×2 (07:53→19:37)
--- NOTE | 2023-06-12 09:03 | Orthopedic Progress Note ---
Date of Service June 12, 2023 Assessment & Plan (1) Neurogenic claudication due to lumbar spinal stenosis: Plan: At this time we will continue physical therapy monitor SULY output anticipate discharge home tomorrow. Admission and Anticipated Discharge Date Admission Date: June 10, 2023 Subjective Back pain controlled leg symptoms markedly improved Physical Exam Physical Exam: Patient is in the chair at the bedside. She is comfortable. Is good strength testing. Results & Data Vital Signs (Past 12 Hours) Vital Signs Temp Pulse Resp BP Pulse Ox O2 Del Method 06/12/23 08:10 36.7 C 97 H 16 118/73 96 Room Air
--- NOTE | 2023-06-12 13:24 | Hospitalist Progress Note ---
Date of Service June 12, 2023 Assessment & Plan (1) Neurogenic claudication due to lumbar spinal stenosis: Plan: POD#2 L3-L5 decompression and fusion, L3 screw removal by Dr. Madison Activity and wound care orders as per ortho Pain control with bowel regimen PT/OT Monitor H/H for acute blood loss anemia and transfuse blood products PRN EBL 400 cc Postop hemoglobin of 10.4. (2) Coronary artery disease: (3) History of myocardial infarction: Plan: Remote history of PA at age 51, managed medically Appears stable, no reports of chest pain Continue ASA and beta-domingo, patient with history of statin intolerance (4) GERD (gastroesophageal reflux disease): Plan: Continue PPI DVT PROPHYLAXIS TEDs/SCDs as per spine Ortho Please note the above document was generated using voice recognition software. It may contain grammatical, syntax or spelling errors. Any formal questions or concerns about the content, text or information contained within the body of this dictation should be directly addressed to the provider for clarification Admission and Anticipated Discharge Date Admission Date: June 10, 2023 Subjective Patient seen and examined at bedside. She is sitting up on the chair at the side of the bed; not in distress. SULY drain in place with serosanguineous output. Afebrile and vital stable. Review of Systems Review of Systems: All systems reviewed & are unremarkable except as noted in Subjective Physical Exam Physical Exam: Constitutional: WD/WN, vitals as above, NAD, sitting up in bed, pleasant, conversing easily Respiratory: normal respiratory effort, lungs clear to auscultation, no wheeze, rales, rhonchi. Normal insp/exp effort, no accessory muscle use Cardiovascular: RRR, no murmur, no edema Vessels: no JVD or carotid bruit Chest: normal inspection of chest Abdomen: normal bowel sounds, soft, nontender, no hepatosplenomegaly Musculoskeletal: no cyanosis or clubbing, extremities motor strength 5/5. SULY drain in place with serosanguineous output. Skin: no rashes, warm and dry normal turgor Neurologic: PERRL, EOMI, accommodation nl, no face palsy, no dysarthria CN's II- XI intact bilaterally and moves all extremities Psychiatric: A+Ox3, euthymic affect Results & Data Results & Data Vital Signs (Past 12 Hours) Vital Signs Temp Pulse Resp BP Pulse Ox O2 Del Method 08/30/23 08:10 36.7 C 97 H 16 118/73 96 Room Air Laboratory Results Laboratory Results WBC 8.11 K/ul (4.8-10.8) 06/11/23 07:53 RBC 3.36 M/uL (4.20-5.40) L 06/11/23 07:53 Hgb 10.4 g/dl (12.0-16.0) L 06/11/23 07:53 Hct 31.3 % (37.0-47.0) L 06/11/23 07:53 MCV 93.2 fL (80.0-100.0) 06/11/23 07:53 MCH 31.0 pg (25.0-34.0) 06/11/23 07:53 MCHC 33.2 g/dL (32.0-36.0) 06/11/23 07:53 RDW Std Deviation 44.4 fL (36.4-46.3) 06/11/23 07:53 RDW Coeff of Demond 13.1 % (11.5-14.5) 06/11/23 07:53 Plt Count 243 K/uL (130-400) 06/11/23 07:53 MPV 10.8 fL (9.4-12.4) 06/11/23 07:53 Immature Gran % (Auto) 0.5 % 06/11/23 07:53 Neut % (Auto) 76.6 % 06/11/23 07:53 Lymph % (Auto) 10.9 % 06/11/23 07:53 [place] % (Auto) 11.1 % 06/11/23 07:53 Eos % (Auto) 0.4 % 06/11/23 07:53 Baso % (Auto) 0.5 % 06/11/23 07:53 Neut # (Auto) 6.22 K/uL (1.40-6.50) 06/11/23 07:53 Lymph # (Auto) 0.88 K/uL (1.20-3.40) L 06/11/23 07:53 [place] # (Auto) 0.90 K/uL (0.11-0.59) H 06/11/23 07:53 Eos # (Auto) 0.03 K/uL (0.00-0.50) 06/11/23 07:53 Baso # (Auto) 0.04 K/uL (0.00-0.20) 06/11/23 07:53 Immature Gran # (Auto) 0.04 K/uL (0.01-0.20) 06/11/23 07:53 Sodium 139 mmol/L (136-145) 06/11/23 07:53 Potassium 4.0 mmol/L (3.5-5.1) 06/11/23 07:53 Chloride 104 mmol/L (98-107) 06/11/23 07:53 Carbon Dioxide 26 mmol/L (21-32) 06/11/23 07:53 Anion Gap 9 (3-11) 06/11/23 07:53 BUN 10 mg/dl (6-23) 06/11/23 07:53 Creatinine 0.80 mg/dl (0.6-1.2) 06/11/23 07:53 Est Cr Clr Drug Dosing 83.0 ml/min 06/11/23 07:53 Est GFR ( Amer) 86.6 ml/min 06/11/23 07:53 Est GFR (Non-Af Amer) 74.7 ml/min 06/11/23 07:53 BUN/Creatinine Ratio 12.5 (10-20) 06/11/23 07:53 Glucose 117 mg/dl (70-99(Fasting)) H 06/11/23 07:53 Calcium 9.0 mg/dl (8.6-10.3) 06/11/23 07:53 Blood Type O Positive 06/10/23 10:01 Antibody Screen NEGATIVE 06/10/23 10:01 Crossmatch See Detail 06/10/23 10:01 Impressions Lumbar Spine X-Ray 06/10/23 11:35 INTRAOPERATIVE RADIOGRAPHS CLINICAL HISTORY: Lumbar spinal fusion. Fluoro time: 15 seconds Ka,r: 12.20 mGy FINDINGS: 4 spot fluoroscopic views of the lumbar spine are presented. There is evidence of multilevel laminectomy and thoracolumbar spinal fusion. The exact levels are not clearly delineated on the provided images. There is a multilevel discectomy. The orthopedic hardware appears intact. Grade 1 anterolisthesis is noted at the discectomy level. IMPRESSION: Intraoperative images from thoracolumbar spinal fusion surgery as above. Electronically signed by: Tae Arreola M.D. 06/10/2023 4:10 PM
[2023-06-12] MEDS: ASCORBIC ACID 500 MG TAB PO SCH (19:38)
[2023-06-12] MEDS: CHOLESTYRAMINE LIGHT 4 GM PKT PO SCH (19:39)
[2023-06-12] MEDS: DOCUSATE SODIUM/SENNA 50/8.6MG TAB PO SCH (19:39)
[2023-06-13] MEDS: ACETAMINOPHEN 500 MG TAB PO PRN (05:32)
[2023-06-13] MEDS: ASPIRIN 81 MG ECTAB PO SCH (08:11)
[2023-06-13] MEDS: CALCIUM CARBONATE 1250MG TAB PO SCH (08:11)
[2023-06-13] MEDS: FUROSEMIDE 20 MG TAB PO SCH (08:11)
[2023-06-13] MEDS: dexAMETHasone 6 MG in SYRINGE 0 ML IV SCH (08:11)
[2023-06-13] MEDS: ATENOLOL 50 MG TABLET PO SCH (08:12)
[2023-06-13] MEDS: PANTOprazole 40 MG TAB PO SCH (08:12)
--- NOTE | 2023-06-13 08:34 | Discharge Summary ---
Date of Service June 13, 2023 Admission HPI Per Admitting Provider This is a 72-year-old female who presents with chronic persistent back and bilateral leg pain after failing course of nonoperative care she is here for surgical invention. Principal Diagnosis Lumbar spinal stenosis with radiculopathy Discharge Data Allergies Allergy/AdvReac Type Severity Reaction Status Date / Time adhesive Allergy Intermediate Skin Verified 06/10/23 10:13 tearing alirocumab Allergy Intermediate Chest Pain Verified 06/10/23 10:13 [From Praluent Pen] [id number] Reductase AdvReac Intermediate muscle pain Verified 06/10/23 10:13 Inhibitor [[id number]-[id number] Reductase Inhibitor] Consultations 06/10/23 16:17 Consult Hospitalist Routine Procedures Performed Operation Date: 06/10/23 11:35 Actual Procedures p L3-L5 Decompression and Fusion, L3 Screw Removal, Spinal Cord Monitoring(Not Applicable) - Henrik Madison DO Ordered Studies 06/10/23 11:35 FL lumbar spine 2-3V Routine Hospital Course (1) Neurogenic claudication due to lumbar spinal stenosis: Patient went lumbar decompression fusion tolerated this well was taken to orthopedic for postoperative. Postop day 1 she was up and ambulating with marked improvement of her leg symptoms. She progressed appropriately throughout her hospital stay. SULY drain decreasing probably. Excellent strength testing. Subsequent discharge home. Discharge orders instructions from the chart for further review. Total Time Total Time Spent Total Time Spent (In Minutes): 20 minutes Discharge Plan Discharge Items Patient Disposition: Home - Self-Care Reason For Visit: Spinal Stenosis, Lumbar Region with Neurogenic Discharge Diagnosis: Lumbar spinal stenosis with neurogenic claudication Activity: As commented below Non-emergency contact: Primary Care Provider Call non-emergency contact if: you have any medication questions Follow-up/Referrals: Rigo Chavez [Primary Care Provider] - Diet: Regular Addtl Attending Provider Instructions: ACTIVITY RECOMMENDATIONS: SELF CARE INSTRUCTIONS AFTER THORACIC/LUMBAR FUSIONS 1. You may walk to your tolerance. It is good exercise for your legs and back. Expect some back and intermittent leg aches and pains. 2. You may perform "counter-top" level activities (make a sandwich, sahil with a project, etc.). 3. No bending or lifting of more than 10 pounds or back twisting of any nature (roll like a log when turning in bed). 4. You may ride in a car for 20-30 minutes at a time. No driving until after your first visit with your doctor. 5. Frequent changes of position and restricting sitting to 30 minutes at a time will help limit the amount of back spasms and stiffness you may experience. 6. You may discontinue the use of ambulatory aids (cane, crutches, etc.) once your strength and confidence allow. 7. You may estate administrator the shower and let water strike your incision when you arrive home at least once daily. Do not take a tub bath, sit in a hot tub or go into a swimming pool until after your first recheck in the office. SPECIAL CARE INSTRUCTIONS: VERY IMPORTANT TO READ AND REVIEW A. Your surgical incision has been closed with a cosmetic suture under the skin that will dissolve in about 6 weeks. In 14 days, you can use a pair of clean scissors and cut the suture that is left outside of the skin at the ends of your incision. 1. The small skin tapes can be removed 7 days after surgery if they have not fallen off by that point. 2. You may keep the wound open to air as much as possible to promote healing after post-op day number 5 unless told otherwise by your doctor. 3. If you think the wound looks like it is becoming infected (redness or worsening drainage) and/or you are experiencing fever, chill or worsening back pain and muscle spasms, contact the office so that we may evaluate you as soon as possible. B. Complications are uncommon, but please contact us if you have any signs or symptoms of: 1. wound infection (fever higher than 102.5 degrees F, redness, separation of wound, drainage, or increasing pain from the incision) 2. blood clots in legs (pain, swelling, redness and warmth in legs) 3. urinary tract infection (fever higher than 102.5 degrees F, burning upon urination or increased frequency of urination) 4. nerve problems (inability to walk on your toes or heels, numbness, loss of bowel or bladder control) 5. any other symptoms that concern you C. Please call the office at if you have any concerns or questions about your operation or recovery. D. No smoking! Smoking drastically decreases the chance of a solid fusion. E. Do not take any anti-inflammatory medications (Indocin, Advil, Motrin, Aspirin, Naprosyn, etc.) as these may inhibit the chance of a solid fusion. Tylenol is okay to take for pain. MANAGING PAIN AFTER SPINAL SURGERY 1. Narcotic medication is intended for short-term use and will be provided for surgical pain. Surgical pain usually lasts for a period of 4-6 weeks. Narcotic medication includes Percocet, Vicodin, Darvocet, Tylenol #3 or Lortab. 2. Longer-term pain is more appropriately treated with non-narcotic medication such as Tylenol ES. 3. Muscle spasm is not appropriately treated with narcotics. Muscle relaxers such as Soma, Flexeril or Skelaxin can be used along with Tylenol ES. 4. Remember that we all live with some "aches and pains". This is not unusual or uncommon after an injury or as we get older. a. Back pain is expected and may include muscle spasms for 4 to 6 weeks after surgery. The pain should gradually improve. If the pain worsens for no apparent reason, please contact the office. b. Intermittent leg pain may also be experienced and should not be concerned about unless it worsens for no apparent reason. If so, please contact the office. 5. We will provide appropriate medication within the normal guidelines of their prescribed use. We will also be very cautious and aware of potential abuse and extended duration of patients' medication needs. a. Pain medications are for your comfort and to assist with sleep and rest so that the tissue can heal. They are not provided in order to return to normal activity and should not be used through the day. To do so or worsening pain at night can result from ongoing tissue damage and development of tolerance to the prescribed medicine. 6. Please allow 2-3 days to process refills. Prescriptions will not be mailed but must be picked up at the office. FOLLOW UP VISIT: Keep your scheduled follow-up appointment. Any questions, please call the office at . Pending Studies at Discharge: No Stand-Alone Forms: My AskYou, Smoking Cessation Medications and DC Order Prescriptions: New tramadol 50 mg tablet 50 mg PO Q6H PRN (Reason: pain, moderate) Qty: 30 0RF oxycodone 5 mg tablet 5 mg PO Q6H PRN (Reason: pain) Qty: 30 0RF Continued pantoprazole 40 mg tablet,delayed release (DR/EC) See Rx Instructions .ROUTE .COMPLEX Qty: 60 0RF Dose Instruction: TAKE ONE (1) TABLET BY MOUTH TWICE DAILY Rx Instructions: TAKE ONE (1) TABLET BY MOUTH TWICE DAILY celecoxib 200 mg capsule 200 mg PO DAILY PRN (Reason: pain) atenolol 50 mg tablet 50 mg PO QAM cyanocobalamin (vitamin B-12) [Vitamin B-12] 2,500 mcg tablet, sublingual 2,500 mcg sublingual QAM nitroglycerin [Nitrostat] 0.4 mg tablet, sublingual 0.4 mg sublingual Q5M PRN (Reason: chest pain) Rx Instructions: do not exceed 3 doses per episode aspirin 81 mg tablet,delayed release (DR/EC) 81 mg PO QAM garlic 1 cap PO HS furosemide 20 mg tablet 20 mg PO QAM Rx Instructions: MAY TAKE ADDITIONAL 20 MG PRN EDEMA Premarin 0.625 mg/gram cream 0.625 mg vaginal 2XWK ascorbic acid (vitamin C) 500 mg capsule 500 mg PO HS calcium carbonate 600 mg calcium (1,500 mg) tablet 600 mg PO DAILY cholestyramine (with sugar) [Questran] 4 gram powder in packet 1 ea PO QPM Rx Instructions: 1 ea PO 1-2 times daily; omega-3 fatty acids [Fish Oil] 1 cap PO QAM Discharge Orders: Discharge Order (Routine); Ordered 06/13/23 Ordered By: Henrik Madison Admission Data Admit Date/Time: 06/10/23 15:12 Attending Provider: Henrik Madison Admit Provider: Henrik Madison Primary Care Provider: Rigo Chavez Other Providers: Shirley Tompkins ; Sean Hammonds
--- NOTE | 2023-06-13 14:19 | Hospitalist Progress Note ---
Date of Service June 13, 2023 Assessment & Plan (1) Neurogenic claudication due to lumbar spinal stenosis: Plan: POD#3 L3-L5 decompression and fusion, L3 screw removal by Dr. Madison Activity and wound care orders as per ortho Pain control with bowel regimen PT/OT Monitor H/H for acute blood loss anemia and transfuse blood products PRN EBL 400 cc Postop hemoglobin of 10.4. (2) Coronary artery disease: (3) History of myocardial infarction: Plan: Remote history of [place] at age 51, managed medically Appears stable, no reports of chest pain Continue ASA and beta-domingo, patient with history of statin intolerance (4) GERD (gastroesophageal reflux disease): Plan: Continue PPI DVT PROPHYLAXIS TEDs/SCDs as per spine Ortho Please note the above document was generated using voice recognition software. It may contain grammatical, syntax or spelling errors. Any formal questions or concerns about the content, text or information contained within the body of this dictation should be directly addressed to the provider for clarification Admission and Anticipated Discharge Date Admission Date: June 10, 2023 Subjective Patient seen and examined at bedside. She is sitting up on the bed comfortably; not in distress. No significant overnight events. Having regular bowel movements. Review of Systems Review of Systems: All systems reviewed & are unremarkable except as noted in Subjective Physical Exam Physical Exam: Constitutional: WD/WN, vitals as above, NAD, sitting up in bed, pleasant, conversing easily Respiratory: normal respiratory effort, lungs clear to auscultation, no wheeze, rales, rhonchi. Normal insp/exp effort, no accessory muscle use Cardiovascular: RRR, no murmur, no edema Vessels: no JVD or carotid bruit Chest: normal inspection of chest Abdomen: normal bowel sounds, soft, nontender, no hepatosplenomegaly Musculoskeletal: no cyanosis or clubbing, extremities motor strength 5/5. SULY drain in place with serosanguineous output. Skin: no rashes, warm and dry normal turgor Neurologic: PERRL, EOMI, accommodation nl, no face palsy, no dysarthria CN's II- XI intact bilaterally and moves all extremities Psychiatric: A+Ox3, euthymic affect Results & Data Results & Data Vital Signs (Past 12 Hours) Vital Signs Temp Pulse Pulse Resp BP Pulse Ox O2 Del Method 06/13/23 09:50 36.7 C 57 L 65 16 145/75 H 96 06/13/23 07:00 36.7 C 65 16 145/75 H 96 Room Air Laboratory Results Laboratory Results WBC 8.11 K/ul (4.8-10.8) 06/11/23 07:53 RBC 3.36 M/uL (4.20-5.40) L 06/11/23 07:53 Hgb 10.4 g/dl (12.0-16.0) L 06/11/23 07:53 Hct 31.3 % (37.0-47.0) L 06/11/23 07:53 MCV 93.2 fL (80.0-100.0) 06/11/23 07:53 MCH 31.0 pg (25.0-34.0) 06/11/23 07:53 MCHC 33.2 g/dL (32.0-36.0) 06/11/23 07:53 RDW Std Deviation 44.4 fL (36.4-46.3) 06/11/23 07:53 RDW Coeff of Demond 13.1 % (11.5-14.5) 06/11/23 07:53 Plt Count 243 K/uL (130-400) 06/11/23 07:53 MPV 10.8 fL (9.4-12.4) 06/11/23 07:53 Immature Gran % (Auto) 0.5 % 06/11/23 07:53 Neut % (Auto) 76.6 % 06/11/23 07:53 Lymph % (Auto) 10.9 % 06/11/23 07:53 [place] % (Auto) 11.1 % 06/11/23 07:53 Eos % (Auto) 0.4 % 06/11/23 07:53 Baso % (Auto) 0.5 % 06/11/23 07:53 Neut # (Auto) 6.22 K/uL (1.40-6.50) 06/11/23 07:53 Lymph # (Auto) 0.88 K/uL (1.20-3.40) L 06/11/23 07:53 [place] # (Auto) 0.90 K/uL (0.11-0.59) H 06/11/23 07:53 Eos # (Auto) 0.03 K/uL (0.00-0.50) 06/11/23 07:53 Baso # (Auto) 0.04 K/uL (0.00-0.20) 06/11/23 07:53 Immature Gran # (Auto) 0.04 K/uL (0.01-0.20) 06/11/23 07:53 Sodium 139 mmol/L (136-145) 06/11/23 07:53 Potassium 4.0 mmol/L (3.5-5.1) 06/11/23 07:53 Chloride 104 mmol/L (98-107) 06/11/23 07:53 Carbon Dioxide 26 mmol/L (21-32) 06/11/23 07:53 Anion Gap 9 (3-11) 06/11/23 07:53 BUN 10 mg/dl (6-23) 06/11/23 07:53 Creatinine 0.80 mg/dl (0.6-1.2) 06/11/23 07:53 Est Cr Clr Drug Dosing 83.0 ml/min 06/11/23 07:53 Est GFR ( Amer) 86.6 ml/min 06/11/23 07:53 Est GFR (Non-Af Amer) 74.7 ml/min 06/11/23 07:53 BUN/Creatinine Ratio 12.5 (10-20) 06/11/23 07:53 Glucose 117 mg/dl (70-99(Fasting)) H 06/11/23 07:53 Calcium 9.0 mg/dl (8.6-10.3) 06/11/23 07:53 Blood Type O Positive 06/10/23 10:01 Antibody Screen NEGATIVE 06/10/23 10:01 Crossmatch See Detail 06/10/23 10:01 Impressions Lumbar Spine X-Ray 06/10/23 11:35 INTRAOPERATIVE RADIOGRAPHS CLINICAL HISTORY: Lumbar spinal fusion. Fluoro time: 15 seconds Ka,r: 12.20 mGy FINDINGS: 4 spot fluoroscopic views of the lumbar spine are presented. There is evidence of multilevel laminectomy and thoracolumbar spinal fusion. The exact levels are not clearly delineated on the provided images. There is a multilevel discectomy. The orthopedic hardware appears intact. Grade 1 anterolisthesis is noted at the discectomy level. IMPRESSION: Intraoperative images from thoracolumbar spinal fusion surgery as above. Electronically signed by: Tae Arreola M.D. 06/10/2023 4:10 PM
== END 2023-06-13 12:58 | disposition home or self-care (01) | DRG 454 ==
LOC: ASU 09:45 → 3N 15:12

== ENCOUNTER 2025-06-02 20:14 | Observation (INO) ==
--- NOTE | 2025-06-02 20:31 | Emergency Department Note ---
Impression & Plan Chest pain Admission ED Provider Note HPI: History obtained from patient. The patient is a 74-year-old female who presents the emergency department with chief complaint of intermittent chest pain for about the past 5 days. Patient states that she has beginning intermittent chest pain across the top portion of her chest that radiates to her back. She states this does seem to worsen somewhat with exertion. Patient was evaluated at the ER in [place] on Saturday, she was ultimately discharged home after what she reports was an unremarkable workup. Patient saw her cardiology provider in the office today and was advised to go to the emergency room to be assessed for the discomfort as she was again having chest pain today, patient states instead she went home because she was feeling well at the time and then when she was on the ride home she began to have symptoms again. Patient therefore came to the ER this evening to be assessed. Patient does note a history of coronary artery disease, she states she had an CA when she was about 51 years old. On arrival here to the ED the patient is hypertensive but otherwise hemodynamically stable, she states currently she is chest pain-free when I am speaking with her. ROS: - Per HPI Differential Diagnosis: Acute coronary syndrome, pulmonary embolism, aortic dissection, pleuritis, costochondritis, esophagitis/GERD, amongst other potential pathologies. *Outpatient medications and allergy history reviewed. PE: General: Alert HEENT: Normocephalic, trachea midline Eyes: Extraocular eye movement is intact, no scleral erythema Pulmonary: Clear to auscultation bilaterally, no wheezing Cardio: Regular rate and rhythm GI: Abdomen is soft to palpation : No suprapubic tenderness MSK: No evidence of trauma or malformation of the extremities, no edema Skin: No evidence of rash Neuro: Alert, no focal deficits Psychiatric: Cooperative INDEPENDENT INTERPRETATIONS: phototypesetting equipment monitor: (As interpreted by myself): - An order was placed for continuous cardiac monitoring - Patient was noted to be in sinus rhythm with a rate of 79 EKG: (As interpreted by myself): Rate: 84 Rhythm: Normal sinus rhythm Intervals: QRS 142 ms, otherwise within normal limits ST changes: No ST elevation Time: 2028 Chest x-ray: (As interpreted by myself): No acute disease Interventions provided in ED: - IV fluid bolus Medical Decision Making: IV was established and lab work obtained, patient was placed on cardiac rn. Lab work shows no leukocytosis, hemoglobin is normal, platelet count is normal, CMP does not show any evidence of any critical findings. Troponin is negative x 1. EKG per my interpretation shows no evidence of any ST elevation, there are noted to be some T wave inversions in V3, V4, and V5 that appear new in comparison to patient's previous EKG. Chest x-ray per my interpretation does not show any evidence of any acute disease. Patient did have CT angiography of the chest done this past Saturday at [facility], I was able to review the report and there was no evidence of PE. On my reevaluation the patient is chest pain-free, given her history of CAD with EKG changes I feel she should be admitted at this point for further management and cardiology consultation. Patient states she did take aspirin earlier today and therefore she was not given another dose here. I discussed patient's presentation with the on-call hospitalist, Dr. Ramires, and the patient was placed for admission in stable condition. Consultants/Discussions held with other healthcare providers: - Hospitalist, Dr. Ramires Disposition discussion held by myself with: - Patient and family at bedside Diagnosis: 1. Chest pain, acute 2. History of coronary artery disease 3. T wave inversions on EKG Disposition: Admission Myke Lindsey DO Emergency Medicine Past Med/Surg History Problem List (Updated 06/03/25 @ 00:05 by Myke Lindsey DO) Chest pain (Acute) Neurogenic claudication due to lumbar spinal stenosis Coronary artery disease Hypertension Hyperlipidemia GERD (gastroesophageal reflux disease) History of myocardial infarction Age 40s, [place] [facility] [place] (f/u based on holter monitor findings per note) Medical History Chronic back pain Cystocele and rectocele with complete uterovaginal prolapse wears pessary GERD (gastroesophageal reflux disease) History of COVID-19 09/2020, no residual symptoms History of myocardial infarction Age 40s, [place] [facility] [place] (f/u based on holter monitor findings per note) Hyperlipidemia Hypertension Left knee DJD Perforated bowel Hx r/t colonoscopy complication > bowel resection Solitary lung nodule Vaginal pessary present Surgical History H/O cardiac catheterization Age 40s- no stents History of arthroplasty of knee left knee History of arthroscopy of right knee History of benign breast biopsy History of bilateral cataract extraction History of bilateral tubal ligation History of bowel resection After perforation after colonoscopy History of section x3 History of colonoscopy History of cystoscopy History of dilatation and curettage History of esophagogastroduodenoscopy (EGD) History of loop recorder subsequently removed History of lumbar spinal fusion History of partial hysterectomy History of wisdom tooth extraction Hx of decompressive lumbar laminectomy S/P appendectomy S/P cholecystectomy Family History Mother Heart disease Myocardial infarction Father Cancer lymphoma Grandmother (Paternal) Heart disease Sister Diabetes Brother Diabetes Daughter Diabetes Other No family history of adverse response to anesthesia Social History Smoking Status: Never smoker Second Hand Exposure: No; Do You Dip or Chew Tobacco: No; Hx Alcohol Use: No Hx Substance Use: No Preferred Language: Mongolian Communication Ability: Effective Airport Ramp Attendant Required: No Beliefs That Will Affect Care: None marital status: Current Living Situation: Alone Feels Safe at Home: Yes Assistive Devices: Walker Allergies Allergies Allergy/AdvReac Type Severity Reaction Status Date / Time adhesive Allergy Intermediate Skin Verified 06/02/25 14:09 tearing alirocumab Allergy Intermediate Chest Pain Verified 06/02/25 14:09 [From Praluent Pen] Hznhtby-GYX-NxQ Reductase AdvReac Intermediate muscle pain Verified 06/02/25 14:09 Inhibitor [Vthgekn-Bov-Qxu Reductase Inhibitor] Home Meds Home Medications Medication Instructions Recorded Confirmed aspirin 81 mg tablet,delayed 81 mg PO QAM 02/21/21 06/02/25 release atenolol 50 mg tablet 50 mg PO QAM 02/21/21 06/02/25 celecoxib 200 mg capsule 200 mg PO DAILY PRN pain 02/21/21 06/02/25 cyanocobalamin (vitamin B-12) 2,500 mcg sublingual QAM 02/21/21 06/02/25 2,500 mcg sublingual tablet (Vitamin B-12) furosemide 20 mg tablet 20 mg PO QAM 02/21/21 06/02/25 garlic 1 cap PO HS 02/21/21 06/02/25 nitroglycerin 0.4 mg sublingual 0.4 mg sublingual Q5M PRN chest 02/21/21 06/02/25 tablet (Nitrostat) pain ascorbic acid (vitamin C) 500 mg 500 mg PO HS 02/27/21 06/02/25 capsule calcium carbonate 600 mg PO QAM 03/17/21 06/02/25 cholestyramine (with sugar) 4 gram 1 ea PO DAILY 03/17/21 06/02/25 powder for susp in a packet (Questran) acetaminophen 500 mg tablet 1,000 mg PO Q6H PRN Fever Or Pain 01/10/24 06/02/25 (Tylenol Extra Strength) omega-3 fatty acids 1,000 mg 1,000 mg PO QAM 06/02/25 06/02/25 capsule pantoprazole 40 mg tablet,delayed 40 mg PO AMHS 06/02/25 06/02/25 release Results & Data (ED) Vital Signs Vital Signs - 24 hr 06/02/25 20:18 06/02/25 20:41 06/02/25 20:41 Temperature 36.9 C Temperature Source Temporal Artery Scan Pulse Rate 93 H Pulse Rate [Right Finger] Pulse Rhythm Regular Pulse Rhythm [Right Finger] Pulse Strength Normal Respiratory Rate 18 Respiratory Effort / Characteristics Non-Labored Spontaneous Respiratory Depth Normal Respiratory Pattern Regular Blood Pressure 185/78 H Blood Pressure [Right Arm] Blood Pressure Mean 113 Blood Pressure Mean [Right Arm] Blood Pressure Position Sitting Pulse Oximetry 97 99 99 Oxygen Delivery Method Room Air Room Air Room Air Sepsis Recent Fever Within 48 Hours No Sepsis New/Unexplained Change in Mental Status N/A Sepsis Action Taken by Nursing No Action Required 06/02/25 21:10 06/02/25 22:15 Temperature Temperature Source Pulse Rate 70 Pulse Rate [Right Finger] 80 Pulse Rhythm Pulse Rhythm [Right Finger] Regular Pulse Strength Respiratory Rate 16 Respiratory Effort / Characteristics Respiratory Depth Normal Respiratory Pattern Blood Pressure Blood Pressure [Right Arm] 175/85 H Blood Pressure Mean Blood Pressure Mean [Right Arm] 115 Blood Pressure Position Pulse Oximetry 97 Oxygen Delivery Method Room Air Sepsis Recent Fever Within 48 Hours Sepsis New/Unexplained Change in Mental Status Sepsis Action Taken by Nursing Laboratory Data 06/02/25 20:32 06/02/25 20:32 Lab Results 06/02/25 Range/Units 20:32 WBC 10.66 (4.8-10.8) K/ul RBC 4.37 (4.20-5.40) M/uL Hgb 13.7 (12.0-16.0) g/dl Hct 39.8 (37.0-47.0) % MCV 91.1 (80.0-100.0) fL MCH 31.4 (25.0-34.0) pg MCHC 34.4 (32.0-36.0) g/dL RDW Std Deviation 43.3 (36.4-46.3) fL RDW Coeff of Demond 13.0 (11.5-14.5) % Plt Count 331 (130-400) K/uL MPV 10.8 (9.4-12.4) fL Immature Gran % (Auto) 0.3 % Neut % (Auto) 71.9 % Lymph % (Auto) 17.3 % Toombs % (Auto) 8.6 % Eos % (Auto) 1.3 % Baso % (Auto) 0.6 % Neut # (Auto) 7.67 H (1.40-6.50) K/uL Lymph # (Auto) 1.84 (1.20-3.40) K/uL Toombs # (Auto) 0.92 H (0.11-0.59) K/uL Eos # (Auto) 0.14 (0.00-0.50) K/uL Baso # (Auto) 0.06 (0.00-0.20) K/uL Immature Gran # (Auto) 0.03 (0.01-0.20) K/uL PT 11.9 (9.0-12.0) Seconds INR 1.1 (0.9-1.1) Sodium 138 (136-145) mmol/L Potassium 3.8 (3.5-5.1) mmol/L Chloride 101 (98-107) mmol/L Carbon Dioxide 26 (21-32) mmol/L Anion Gap 11 (3-11) BUN 14 (6-23) mg/dl Creatinine 1.33 H (0.6-1.2) mg/dl Est Cr Clr Drug Dosing 48.6 ml/min eGFR 42.51 BUN/Creatinine Ratio 10.5 (10-20) Glucose 112 H (70-99(Fasting)) mg/dl Calcium 9.5 (8.6-10.3) mg/dl Total Bilirubin 0.8 (0.2-1.0) mg/dl AST 10 L (13-39) U/L ALT 9 (7-52) U/L Alkaline Phosphatase 76 (34-104) U/L Troponin I High Sens 5.7 (0-14) pg/ml Total Protein 8.0 (6.0-8.3) gm/dl Albumin 4.1 (3.4-5.0) gm/dl Globulin 3.9 (2.5-4.0) gm/dl Albumin/Globulin Ratio 1.1 (0.9-2) Lipase 25 (11-82) U/L Administered Medications Discontinued Medications Sodium Chloride (Nss) 500 mls @ 999 mls/hr IV .Q31M STA Stop: 06/02/25 20:53 Last Infusion: 06/02/25 22:02 Dose: Infused Documented By: Admin: 06/02/25 20:33 Dose: 999 mls/hr Documented By: SHIELA Imaging Data Radiologist's Impression: Chest X-Ray 06/02/25 20:23 Exam(s): XR CXR 1 VIEW EXAM: XR Chest, 1 View CLINICAL HISTORY: Reason for exam: Chest pain, nonspecific. TECHNIQUE: Frontal view of the chest. COMPARISON: No relevant prior studies available. FINDINGS: Lungs: Mild to moderate peribronchial thickening of the central bronchi. No consolidation. Pleural space: Unremarkable. No pneumothorax. Heart: Unremarkable. No cardiomegaly. Mediastinum: Unremarkable. Normal mediastinal contour. Bones/joints: Unremarkable. No acute fracture. IMPRESSION: Bronchitis, which may be of infectious or inflammatory etiologies. No consolidation or pleural effusion. Electronically signed by: Sangita Calvert MD 06/02/25 22:45 PM Discharge Plan Visit Data Chief Complaint: Cardiac Assessment Stated Complaint: CHEST PAIN ED Provider: Myke Lindsey Discharge Problem: Chest pain Patient Disposition: Admitted As Inpatient Condition: Fair Forms Stand Alone Forms: [facility], Important Visit Information Prescriptions Prescriptions: No Action celecoxib 200 mg capsule 200 mg PO DAILY PRN (Reason: pain) atenolol 50 mg tablet 50 mg PO QAM cyanocobalamin (vitamin B-12) [Vitamin B-12] 2,500 mcg tablet, sublingual 2,500 mcg sublingual QAM nitroglycerin [Nitrostat] 0.4 mg tablet, sublingual 0.4 mg sublingual Q5M PRN (Reason: chest pain) Rx Instructions: do not exceed 3 doses per episode aspirin 81 mg tablet,delayed release (DR/EC) 81 mg PO QAM garlic 1 cap PO HS furosemide 20 mg tablet 20 mg PO QAM Rx Instructions: MAY TAKE ADDITIONAL 20 MG PRN EDEMA ascorbic acid (vitamin C) 500 mg capsule 500 mg PO HS calcium carbonate 600 mg calcium (1,500 mg) tablet 600 mg PO QAM cholestyramine (with sugar) [Questran] 4 gram powder in packet 1 ea PO DAILY acetaminophen [Tylenol Extra Strength] 500 mg tablet 1,000 mg PO Q6H PRN (Reason: Fever Or Pain) pantoprazole 40 mg tablet,delayed release (DR/EC) 40 mg PO AMHS omega-3 fatty acids 1,000 mg Capsule 1,000 mg PO QAM Referrals Referrals: Rigo Chavez [Primary Care Provider] - Discharge Problem: Chest pain Qualifiers: Chest pain type: unspecified Qualified Code(s): R07.9 - Chest pain, unspecified
[2025-06-02] MEDS: SODIUM CHLORIDE 0.9% 500 ML IV STA (20:33)
[2025-06-02 20:48] LABS: Hematocrit (blood only) 39.8 % (37.0-47.0); Hemoglobin 13.7 g/dl (12.0-16.0); Immature Granulocytes # (auto) 0.03 K/uL (0.01-0.20); Immature Granulocytes % (auto) 0.3 %; Mean Corpuscular Hemoglobin 31.4 pg (25.0-34.0); Mean Corpuscular Volume 91.1 fL (80.0-100.0); Platelet Count 331 K/uL (130-400); RDW Standard Deviation 43.3 fL (36.4-46.3); Red Blood Count 4.37 M/uL (4.20-5.40); White Blood Count 10.66 K/ul (4.8-10.8)
[2025-06-02 21:04] LABS: Alanine Aminotransferase 9.0 U/L (7-52); Albumin Globulin Ratio 1.1 (0.9-2); Alkaline Phosphatase 76.0 U/L (34-104); Anion Gap 11.0 (3-11); Bilirubin,Total 0.8 mg/dl (0.2-1.0); Blood Urea Nitrogen 14.0 mg/dl (6-23); Calcium 9.5 mg/dl (8.6-10.3); Carbon Dioxide 26.0 mmol/L (21-32); Chloride 101.0 mmol/L (98-107); Creatinine Clr Calc Pharmacy 48.6 ml/min; Globulin 3.9 gm/dl (2.5-4.0); Glucose 112.0 mg/dl (70-99(Fasting)); Lipase 25.0 U/L (11-82); Potassium 3.8 mmol/L (3.5-5.1); Sodium 138.0 mmol/L (136-145); Total Protein 8.0 gm/dl (6.0-8.3)
[2025-06-02 21:16] LABS: INR 1.1 (0.9-1.1); Prothrombin Time 11.9 Seconds (9.0-12.0)
--- NOTE | 2025-06-02 22:46 | XRay Report ---
Exam(s): XR CXR 1 VIEW EXAM: XR Chest, 1 View CLINICAL HISTORY: Reason for exam: Chest pain, nonspecific. TECHNIQUE: Frontal view of the chest. COMPARISON: No relevant prior studies available. FINDINGS: Lungs: Mild to moderate peribronchial thickening of the central bronchi. No consolidation. Pleural space: Unremarkable. No pneumothorax. Heart: Unremarkable. No cardiomegaly. Mediastinum: Unremarkable. Normal mediastinal contour. Bones/joints: Unremarkable. No acute fracture. IMPRESSION: Bronchitis, which may be of infectious or inflammatory etiologies. No consolidation or pleural effusion. Electronically signed by: Sangita Calvert MD 06/02/25 22:45 PM
--- NOTE | 2025-06-02 23:36 | History & Physical Report ---
Date of Service June 02, 2025 Assessment & Plan (1) Stable angina: (2) Hx of myocardial infarction: (3) Hyperlipidemia: (4) Hypertension: Plan Pt is a 74 yo female that arrives to the ED with chest pain. PMHx includes CAD, Benign Essential HTN, Hyperlipidemia, Hx of AR (at 51 yo), GERD, and neurogenic claudication due to lumbar spinal stenosis (surgery 2022). Pt is admitted for treatment of stable angina. # Stable Angina - CAD -Pt began feeling the beginnings of intermittent chest pain across the top portion of her chest that radiated to her back and left shoulder, which then became numb and continued down her left arm. She developed left sided jaw pain., which seemed to worsen somewhat with exertion. Pain improved with Nitroglycerin. On admission she is stable. -EKG -- RBBB, with changes in anterior leads- t wave inversion, compared to 05/31 EKG reading -Chest X-Ray - bronchitis findings, yet unremarkable -hx of AR @ 49 years of age -Troponins - 5.7 unremarkable -CBC CMP, Magnesium, Lipid Panel ordered AMlabs -Troponins Q6 -Dobutamine Stress Echo ordered AM -Cardiology Consult -Nitroglycerin 0.4 mg PRN -Aspirin 81 mg -Statin Intolerance -Supplemental Oxygen as needed #HTN -Continue Atenolol 50 mg & Furosemide 20 mg CODE: DNR DVT Prophylaxis: Heparin 5000 units DISPO: Med/Surg Telemetry History of Present Illness Primary Care Provider: Rigo Chavez Pt is a 74 yo female that arrives to the ED with chest pain. PMHx includes CAD, Benign Essential HTN, Hyperlipidemia, Hx of AR (at 51 yo), GERD, and neurogenic claudication due to lumbar spinal stenosis (surgery 2022). On Wednesday 05/30, pt began feeling the beginnings of intermittent chest pain acros s the top portion of her chest that radiated to her back and left shoulder, which then became numb and continued down her left arm. She developed left sided jaw pain., which seemed to worsen somewhat with exertion. During this time she also felt nausea & dizziness. Symptoms improved with sublingual nitroglycerin administration. The following day, on Thursday 05/31, pt reported similar chest pain, and again she took nitroglycerin, and then went to the ED in [place] for chest pain, whereby, her chest pain had resolved on arriving to the ED. Fluids were given, and pt was discharged, despite recommendation for admission. Today, earlier this morning, pt had a cardiology appointment with Dr. Mckeon, at which time a visit to our ED was recommended due to her hx of CAD. The pt opted that she would like to continue on an outpatient basis. Later this evening pt returned to the ED due to similar symptoms of chest pain, which had relieved on arrival to the ED. We admitted pt for Stable Angina --CAD Allergies Allergy/AdvReac Type Severity Reaction Status Date / Time adhesive Allergy Intermediate Skin Verified 06/02/25 14:09 tearing alirocumab Allergy Intermediate Chest Pain Verified 06/02/25 14:09 [From Praluent Pen] Urybpeg-PNL-XtU Reductase AdvReac Intermediate muscle pain Verified 06/02/25 1 4:09 Inhibitor [Tmturgi-Mel-Nbt Reductase Inhibitor] Home Medications Medication Instructions Recorded Confirmed Type aspirin 81 mg tablet,delayed 81 mg PO QAM 02/21/21 06/02/25 History release atenolol 50 mg tablet 50 mg PO QAM 02/21/21 06/02/25 History celecoxib 200 mg capsule 200 mg PO DAILY PRN pain 02/21/21 06/02/25 History cyanocobalamin (vitamin B-12) 2,500 mcg sublingual QAM 02/21/21 06/02/25 History 2,500 mcg sublingual tablet (Vitamin B-12) furosemide 20 mg tablet 20 mg PO QAM 02/21/21 06/02/25 History garlic 1 cap PO HS 02/21/21 06/02/25 History nitroglycerin 0.4 mg sublingual 0.4 mg sublingual Q5M PRN chest 02/21/21 06/02/25 History tablet (Nitrostat) pain ascorbic acid (vitamin C) 500 mg 500 mg PO HS 02/27/21 06/02/25 History capsule calcium carbonate 600 mg PO QAM 03/17/21 06/02/25 History cholestyramine (with sugar) 4 gram 1 ea PO DAILY 03/17/21 06/02/25 History powder for susp in a packet (Questran) acetaminophen 500 mg tablet 1,000 mg PO Q6H PRN Fever Or Pain 01/10/24 06/02/25 History (Tylenol Extra Strength) omega-3 fatty acids 1,000 mg 1,000 mg PO QAM 06/02/25 06/02/25 History capsule pantoprazole 40 mg tablet,delayed 40 mg PO AMHS 06/02/25 06/02/25 History release Past Med/Surg History Problem List (Updated 06/03/25 @ 02:11 by Chery Palacios MD) Hypertension Hyperlipidemia Hx of myocardial infarction Stable angina Chest pain (Acute) Neurogenic claudication due to lumbar spinal stenosis Coronary artery disease Hypertension Hyperlipidemia GERD (gastroesophageal reflux disease) History of myocardial infarction Age 40s, medically managed [facility] [place] visit 12/2022 (f/u based on holter monitor findings per note) Medical History Chronic back pain Cystocele and rectocele with complete uterovaginal prolapse wears pessary GERD (gastroesophageal reflux disease) History of COVID-19 09/2020, no residual symptoms History of myocardial infarction Age 40s, medically managed [facility] [place]ology visit 12/2022 (f/u based on holter monitor findings per note) Hyperlipidemia Hypertension Left knee DJD Perforated bowel Hx r/t colonoscopy complication > bowel resection Solitary lung nodule Vaginal pessary present Surgical History H/O cardiac catheterization Age 40s- no stents History of arthroplasty of knee left knee History of arthroscopy of right knee History of benign breast biopsy History of bilateral cataract extraction History of bilateral tubal ligation History of bowel resection After perforation after colonoscopy History of section x3 History of colonoscopy History of cystoscopy History of dilatation and curettage History of esophagogastroduodenoscopy (EGD) History of loop recorder subsequently removed History of lumbar spinal fusion History of partial hysterectomy History of wisdom tooth extraction Hx of decompressive lumbar laminectomy S/P appendectomy S/P cholecystectomy Family History Mother Heart disease Myocardial infarction Father Cancer lymphoma Grandmother (Paternal) Heart disease Sister Diabetes Brother Diabetes Daughter Diabetes Other No family history of adverse response to anesthesia Social History Smoking Status: Never smoker Second Hand Exposure: No; Do You Dip or Chew Tobacco: No; Hx Alcohol Use: No Hx Substance Use: No Preferred Language: Macedonian Communication Ability: Effective Log Sorting Supervisor Required: No Beliefs That Will Affect Care: None marital status: Current Living Situation: Alone Current Living Situation Comment: Home alone Other Information That Helps Us Care for You: No Feels Safe at Home: Yes Safety Concerns: Feels Safe At This Time Assistive Devices: CPAP, Denture - Upper and Glasses Review of Systems Review of Systems: All systems reviewed & are unremarkable except as noted in HPI & below Physical Exam Constitutional: WD/WN, vitals as above Eyes: PERRL, conjunctivae normal, anicteric sclerae ENMT: external ear and nose normal, oropharynx normal Neck: trachea midline, no thyromegaly Respiratory: normal respiratory effort, lungs clear to auscultation Cardiovascular: RRR, no murmur, no edema Gastrointestinal (Abdomen): normal bowel sounds, soft, nontender, no hepatosplenomegaly Musculoskeletal: no cyanosis or clubbing, extremities motor strength 5/5 Skin: no rashes, warm and dry Psychiatric: A+Ox3, euthymic affect Results & Data Results & Data Vital Signs (Past 12 Hours) Vital Signs Temp Pulse Pulse Resp BP BP Pulse Ox 06/02/25 22:15 80 16 175/85 H 97 06/02/25 21:10 70 06/02/25 20:41 99 06/02/25 20:41 99 06/02/25 20:18 36.9 C 93 H 18 185/78 H 97 O2 Del Method 06/02/25 22:15 Room Air 06/02/25 21:10 06/02/25 20:41 Room Air 06/02/25 20:41 Room Air 06/02/25 20:18 Room Air Supervising Physician Co-Signing Physician Notes Patient seen and examined, chart reviewed, case discussed with Dr. Palacios and I agree with the assessment and plan as above. In brief, patient is a 74yo female with history of CAD, reports AR in her 50's, HTN and HLP presentig with several days of exertional chest pain relieved with rest and Nitroglycerine (taken Saturday and Saturday). She reports some diaphoresis with the pain. No pain at rest. On exam she is resting comfortably, NAD Skin - warm, dry, intact, no rashes/lesions HEENT - MMM, Neck supple Heart - +S1/S2, regular, no m/r/g, no reproducible chest pain Lungs - CTA Abd - soft, NT/ND Ext - warm, well perfused Labs and images reviewed Troponin x 1 negative EKG with some TWI present in anterior leads - new from prior Assessment/Plan - 74yo female with CAD, HTN and HLP presenting with two days of exertioanl chest pain. New type of pain than experienced before. Workup thus far unremarkable. Concerning description of pain, patient with known CAD - suspect stable angina at this time No chest pain -Admit to Medical with Telemetry -Trend troponin -Check dobutamine stress echo in AM -Cardiology consultation appreciated -Remainder as above
[2025-06-03] MEDS ORDERED: ALUMINUM/MAGNESIUM SUSP 30 ML UDC PO PRN (02:33)
[2025-06-03] MEDS ORDERED: NITROGLYCERIN SL 0.4 MG/TAB TAB SL PRN (02:33)
[2025-06-03] MEDS ORDERED: POLYETHYLENE (MIRALAX) 17 GM PACK PO PRN (02:33)
[2025-06-03] MEDS ORDERED: ACETAMINOPHEN 325 MG TAB PO PRN (02:33)
[2025-06-03] MEDS ORDERED: MELATONIN 3 MG TAB PO PRN (02:33)
[2025-06-03] MEDS ORDERED: ONDANSETRON INJ 2 MG/ML 2 ML VIAL IV PRN (02:33)
[2025-06-03] MEDS ORDERED: MAGNESIUM HYDROXIDE SUSP 30 ML UDC PO PRN (02:33)
--- NOTE | 2025-06-03 03:40 | Billing Data ---
Date of Service June 02, 2025 Coding Level of Care Code 25533 INT INP/OBS CARE
[2025-06-03 07:29] LABS: Hematocrit (blood only) 37.9 % (37.0-47.0); Hemoglobin 12.6 g/dl (12.0-16.0); Immature Granulocytes # (auto) 0.01 K/uL (0.01-0.20); Immature Granulocytes % (auto) 0.2 %; Mean Corpuscular Hemoglobin 30.7 pg (25.0-34.0); Mean Corpuscular Volume 92.4 fL (80.0-100.0); Platelet Count 257 K/uL (130-400); RDW Standard Deviation 44.6 fL (36.4-46.3); Red Blood Count 4.10 M/uL (4.20-5.40); White Blood Count 6.10 K/ul (4.8-10.8)
[2025-06-03 07:48] LABS: Alanine Aminotransferase 8.0 U/L (7-52); Albumin Globulin Ratio 1.4 (0.9-2); Alkaline Phosphatase 59.0 U/L (34-104); Anion Gap 6.0 (3-11); Bilirubin,Total 0.8 mg/dl (0.2-1.0); Blood Urea Nitrogen 13.0 mg/dl (6-23); Calcium 8.9 mg/dl (8.6-10.3); Carbon Dioxide 28.0 mmol/L (21-32); Chloride 107.0 mmol/L (98-107); Cholesterol 247.0 mg/dl (0-200); Creatinine Clr Calc Pharmacy 75.7 ml/min; Globulin 2.7 gm/dl (2.5-4.0); Glucose 101.0 mg/dl (70-99(Fasting)); HDL Cholesterol 49.0 mg/dl; Magnesium 2.1 mg/dl (1.7-2.4); Potassium 4.0 mmol/L (3.5-5.1); Sodium 141.0 mmol/L (136-145); Total Protein 6.4 gm/dl (6.0-8.3); Triglycerides 98.0 mg/dl (0-150)
[2025-06-03 08:39] VITALS: RESP 17
[2025-06-03] MEDS: ATENOLOL 50 MG TABLET PO SCH (08:47)
[2025-06-03] MEDS: ASPIRIN 81 MG ECTAB PO SCH (08:47)
[2025-06-03] MEDS: FUROSEMIDE 20 MG TAB PO SCH (08:48)
[2025-06-03] MEDS: HEPARIN SOD 5,000 UNIT/0.5 ML VIAL SQ SCH (08:51)
[2025-06-03] MEDS: DOBUTamine HCL 12.5 MG/ML 20 ML VIAL IV ONE (10:11)
[2025-06-03] MEDS: ATROPINE SULFATE 0.1 MG/ML 10ML SYR IV ONE (10:11)
[2025-06-03] MEDS: METOPROLOL TARTRATE 1 MG/ML VIAL IV ONE (10:12)
--- NOTE | 2025-06-03 10:29 | Cardiology Progress Note ---
Date of Service June 03, 2025 Assessment & Plan (1) Unstable angina: Plan: - she continues to have these bouts of chest discomfort accompanied with other symptoms listed which she states are worsening. These are now occurring both with activity and rest at. Slight EKG changes are noted compared to previous from [facility] earlier this week. We will proceed with a dobutamine stress echo this morning and await results. At this time, we will not make any medication changes. Admission and Anticipated Discharge Date Admission Date: June 03, 2025 Supervising Physician Co-Signing Physician Notes I saw and examined the patient with ADOLPH Alanis and agree with the documentation above. Briefly, patient with a history of nonobstructive coronary disease experiencing symptoms of chest, back and jaw discomfort recently. Initial episodes were extended in duration lasting 45 minutes. More recent episodes approximately 30 minutes. She did receive some relief with nitroglycerin although this was not immediate. Symptoms can occur at rest or with exertion. No objective evidence of ischemia Dobutamine echocardiogram demonstrated preserved LV function without evidence of inducible ischemia. Overall she appears to be at low risk for an acute coronary event. She can continue her current medical regimen with aggressive cardiac risk factor modification Given her response to nitroglycerin would seem reasonable to add a daily nitrate for symptom improvement. This could be isosorbide mononitrate 30 mg extended release daily. Nash Clements was seen in our office yesterday as a follow up from a recent ER visit at [facility]. Patient tells me that on her way home from our office yesterday, she developed chest pain/pressure similar to what she had experienced before. This pain radiated in between her shoulder blades. She stated that she felt faint and nauseous as well. This episode lasted for approximately 5 minutes. When she got home, she took it easy the rest of the evening. Later on while she was watching TV, the chest pain started again. This started in the center of her chest and radiated to the left side and in between her shoulder blades again. This was accompanied by dizziness, SOB and nausea. These symptoms made her feel worse than previously. She took 1 NTGSL and her daughter drove her to our ER for further evaluation. Her symptoms then dissipated after 5 to 10 minutes while in the car. Upon arrival to the ER, her chest pain/pressure and SOB developed again while walking into the ER. Her symptoms went away with rest. In the ER, her HS troponin was not concerning. CXR unrevealing. Her known RBBB is apparent on her EKG. There are new t wave inversions affecting V4,V5 when compared to her EKG Saturday at [facility]. At time of assessment, the patient is asymptomatic and has not had any further episodes since hospital admission. Review of Systems Review of Systems: as per HPI Physical Exam Physical Exam: Physical Exam: AOx3. Mood affect appear normal. All questions appropriately. HEENT: Sclerae are anicteric. Pupils are equal and reactive to light and accommodation. Extraocular movements were intact. Neuro: Cranial nerves intact Lungs: Lungs are clear to auscultation bilaterally. There are no rales wheezes or rhonchi. She has normal respiratory effort without use of accessory muscles. There is normal pulmonary excursion. Cardiac: The rhythm was regular. S1 and S2 were normal. There are no murmurs on examination. The PMI was not markedly displaced on palpation. No JVD Extremities: Patient has bilateral radial pulses that are equal in intensity. There is no evidence cyanosis or clubbing. +1 bilateral extremity edema present Skin: There are no rashes noted on examination today. Results & Data Vital Signs (Past 12 Hours) Vital Signs Temp Pulse Pulse Resp BP BP Pulse Ox 06/03/25 08:38 36.4 C L 68 17 120/76 96 06/03/25 05:53 67 06/03/25 02:44 36.6 C 78 18 166/69 H 94 06/03/25 00:00 78 16 145/78 H 95 O2 Del Method 06/03/25 08:38 Room Air 06/03/25 05:53 06/03/25 02:44 Room Air 06/03/25 00:00 Room Air PG Care Time/CCT Total # of Minutes Spent Total Time Spent with Patient: Total time spent is greater than 50% in coordination of care (as documented) at patient's floor/unit and/or counseling patient: Coding [place] [address] SUB INP/OBS CARE 11/07MIN Patient Type Established Medical Decision Making Low Complexity Diagnoses Unstable angina I20.0
[2025-06-03 11:29] VITALS: PULSE 62; TEMP 98.1; O2SAT 94
--- NOTE | 2025-06-03 13:16 | Discharge Summary ---
Discharge Summary Date of Service June 03, 2025 Principal Dx & Hospital Course #1 = Principal Diagnosis (1) Stable angina: (2) Hx of myocardial infarction: (3) Hyperlipidemia: (4) Hypertension: Plan Pt is a 74 yo female that arrives to the ED with chest pain. PMHx includes CAD, Benign Essential HTN, Hyperlipidemia, Hx of CA (at 51 yo), GERD, and neurogenic claudication due to lumbar spinal stenosis (surgery 2022). Pt is admitted for treatment of stable angina. # Stable Angina - CAD w/ several days of CP outpatient w/ improvement of pain when using nitro EKG: RBBB Troponin negative x2 --> following stress test, trop mildly elevated at 28 but secondary to stress test CBC/CMP/Mag stable s/p Dobutamine stress test - demonstrated preserved LV function w/o evidence of inducible ischemia Per. Dr. Mckeon - patient at low risk for acute coronary event. Recommending adding Imdur 30mg once daily to medication regimen. #HTN -Continue Atenolol 50 mg & Furosemide 20 mg Patient discharged to home 06/03. Admission HPI Per Admitting Provider Pt is a 74 yo female that arrives to the ED with chest pain. PMHx includes CAD, Benign Essential HTN, Hyperlipidemia, Hx of CA (at 51 yo), GERD, and neurogenic claudication due to lumbar spinal stenosis (surgery 2022). On Wednesday 05/30, pt began feeling the beginnings of intermittent chest pain across the top portion of her chest that radiated to her back and left shoulder, which then became numb and continued down her left arm. She developed left sided jaw pain., which seemed to worsen somewhat with exertion. During this time she also felt nausea & dizziness. Symptoms improved with sublingual nitroglycerin administration. The following day, on Thursday 05/31, pt reported similar chest pain, and again she took nitroglycerin, and then went to the ED in [place] for chest pain, whereby, her chest pain had resolved on arriving to the ED. Fluids were given, and pt was discharged, despite recommendation for admission. Today, earlier this morning, pt had a cardiology appointment with Dr. Mckeon, at which time a visit to our ED was recommended due to her hx of CAD. The pt opted that she would like to continue on an outpatient basis. Later this evening pt returned to the ED due to similar symptoms of chest pain, which had relieved on arrival to the ED. We admitted pt for Stable Angina --CAD Discharge Exam Constitutional WD/WN, vitals as above Eyes PERRL, conjunctivae normal, anicteric sclerae Respiratory normal respiratory effort Skin no rashes, warm and dry Neurologic PERRL, EOMI, accommodation nl, no face palsy, no dysarthria Psychiatric A+Ox3, euthymic affect Discharge Plan Discharge Items Patient Disposition: Home - Self-Care Reason For Visit: CHEST PAIN Discharge Diagnosis: Chest pain Condition on Discharge: Fair Activity: Resume your previous activity Non-emergency contact: Primary Care Provider and Sales And Marketing Representative Call non-emergency contact if: you have any medication questions and your symptoms worsen Follow-up/Referrals: Jacob Mckeon MD [Physician] - Rigo Chavez [Primary Care Provider] - Diet: Heart Healthy Addtl Attending Provider Instructions: Ms. Bowman, You were recently hospitalized for ongoing chest pain. You were evaluated by Dr. Mckeon, your lump roller and underwent a stress test. He deemed you low risk for an acute coronary event. It was recommended that you continue on your current medication regimen. Isosorbide mononitrate (Imdur) 30mg once daily was added to your medication regimen. You can start this 06/04 in the AM. The remainder of your medications may be resumed. Please follow up with cardiology on an outpatient basis. Please follow up with your PCP within 1-2 weeks of discharge. Best of luck! Raven Mccracken PA-C Pending Studies at Discharge: No Stand-Alone Forms: My [facility] Critical Media, Smoking Cessation Medications and DC Order Prescriptions: New isosorbide mononitrate 30 mg tablet extended release 24 hr 30 mg PO DAILY Qty: 30 0RF Continued celecoxib 200 mg capsule 200 mg PO DAILY PRN (Reason: pain) atenolol 50 mg tablet 50 mg PO QAM cyanocobalamin (vitamin B-12) [Vitamin B-12] 2,500 mcg tablet, sublingual 2,500 mcg sublingual QAM nitroglycerin [Nitrostat] 0.4 mg tablet, sublingual 0.4 mg sublingual Q5M PRN (Reason: chest pain) Rx Instructions: do not exceed 3 doses per episode aspirin 81 mg tablet,delayed release (DR/EC) 81 mg PO QAM garlic 1 cap PO HS furosemide 20 mg tablet 20 mg PO QAM Rx Instructions: MAY TAKE ADDITIONAL 20 MG PRN EDEMA ascorbic acid (vitamin C) 500 mg capsule 500 mg PO HS calcium carbonate 600 mg calcium (1,500 mg) tablet 600 mg PO QAM cholestyramine (with sugar) [Questran] 4 gram powder in packet 1 ea PO DAILY acetaminophen [Tylenol Extra Strength] 500 mg tablet 1,000 mg PO Q6H PRN (Reason: Fever Or Pain) pantoprazole 40 mg tablet,delayed release (DR/EC) 40 mg PO AMHS omega-3 fatty acids 1,000 mg Capsule 1,000 mg PO QAM Discharge Orders: Discharge Order (Routine); Ordered 06/03/25 Ordered By: Raven Mccracken Admission Data Admit Date/Time: 06/03/25 00:16 Attending Provider: Vito Roberts Admit Provider: Delphine Ramires Primary Care Provider: Rigo Chavez Other Providers: Delphine Ramires; Jairon Ibrahim; Stephan Youngblood; Dirk Abernathy; Carlo Reynoso; Wellington Williamson Jr; Mauricio Boyd; Cassia Taylor; Maylin Amato; Jacob Solis; Jacob Mckeon; Avis Prater; Hitesh Arrieta; Rubi Feliz; Hitesh Castillo; Trenton Topete; Angel Malone; Stevenson Guajardo; Cliff Eaton; Jakub Reese; Willow Mccain Other Interventions: Discharge Summary Assessment (RN) Last Done: 06/03/25 13:22 Hospital Stay Data Consultations 06/02/25 21:38 ED Decision to Admit Stat 06/03/25 02:33 Consult Cardiology Routine Pending Results Patient Have Any Pending Studies at Discharge: No Discharge Instructions Given to Patient (Per Discharging Provider) Ms. Bowman, You were recently hospitalized for ongoing chest pain. You were evaluated by Dr. Mckeon, your lump roller and underwent a stress test. He deemed you low risk for an acute coronary event. It was recommended that you continue on your current medication regimen. Isosorbide mononitrate (Imdur) 30mg once daily was added to your medication regimen. You can start this 06/04 in the AM. The remainder of your medications may be resumed. Please follow up with cardiology on an outpatient basis. Please follow up with your PCP within 1-2 weeks of discharge. Best of luck! Raven Mccracken PA-C Supervising Physician Co-Signing Physician Notes The patient was not seen by me. The chart was reviewed. Case discussed with TRACY Feliz. Agree with assessment and plan Total Time Total Time Spent Total Time Spent (In Minutes): 50 Total Time Includes: Examination of the Patient, Discharge Planning, Medication Reconciliation, Communication With Other Providers and Other Coding Level of Care Code 83017 INP/OBS DISCH >30 MIN Diagnoses Stable angina I20.89 Hx of myocardial infarction I25.2 Hyperlipidemia E78.5 Hypertension I10
[2025-06-03 13:23] VITALS: BP 166/69
--- NOTE | 2025-06-05 07:16 | Electrocardiogram Report ---
Test Reason : Blood Pressure : */* mmHG Vent. Rate : 84 BPM Atrial Rate : 84 BPM P-R Int : 178 ms QRS Dur : 142 ms QT Int : 418 ms P-R-T Axes : 43 -17 8 degrees QTcB Int : 493 ms Normal sinus rhythm Right bundle branch block Possible Lateral infarct , age undetermined Inferior infarct , age undetermined Abnormal ECG When compared with ECG of 23-Sep-2013 10:17, Right bundle branch block is now Present Confirmed by Carlo Reynoso ([id number]) on 06/05/2025 7:15:31 AM Referred By: REFERRED SELF Confirmed By: Carlo Reynoso
== END 2025-06-03 14:15 | disposition home or self-care (01) ==
LOC: ED 20:14 → SUATTDRO 06-03 00:16 → INTOOBSV 06-03 00:16 → 2N 06-03 00:16